=== PATIENT | female | born 1995 | race Caucasian/White ===

== ENCOUNTER → 2019-07-08 09:47 | Outpatient (CLI) | payer MEDICAID, SELFPAY ==
--- NOTE | 2019-07-08 12:40 | NEURO ---
NCS and/or EMG Patient Report Ordering Doctor: Dania Huertas DATE OF SERVICE: 07/08/19 Char Chau is a 23 year old female who presents for electrodiagnostic testing of the upper limbs. She has numbness and tingling in the upper limbs. Electrodiagnostic Testing: Testing performed in the upper limbs. Normal median and ulnar motor studies. Prolonged median sensory latency at the wrist bilaterally. Normal ulnar and radial sensory responses. On needle EMG, all muscles tested show no evidence of denervation with normal motor unit action potentials. Electrodiagnostic assessment: This is an abnormal study in the upper limbs. 1. Electrodiagnostic findings demonstrate bilateral median mononeuropathy. This is consistent with a mild bilateral carpal tunnel syndrome If there are any further questions, please do not hesitate to contact me.
== END ==
PROVIDERS: PCP Nurse Practitioner Family; Referring Provider Physician Assistant; Visit Provider Physician Assistant
DX: R20.2 Paresthesia of skin (principal)
CPT/HCPCS: 95886; 95912

== ENCOUNTER 2024-02-25 10:20 | Emergency (ER) | payer MEDICAID, SELFPAY ==
[2024-02-25 10:20] VITALS: BP 142/100; PULSE 93; RESP 14; TEMP 36.8; O2SAT 99; BMI 78.7
--- NOTE | 2024-02-25 11:12 | CT_ITS ---
STUDY: CT ABDOMEN AND PELVIS WITH CONTRAST REASON FOR EXAM: Female, 28 years old. Post op pain, drainage. HERNIA REPAIR 1 MONTH AGO RADIATION DOSAGE (If Supplied By Facility): CTDIvol = ( 15.41 ) mGy, DLP = ( 1404.82 ) mGycm TECHNIQUE: Transaxial images were obtained from the dome of the diaphragm to the symphysis pubis without oral contrast. IV 100mL Isovue-300 was administered. Sagittal and coronal images were reconstructed. Individualized dose optimization techniques were used for this CT. COMPARISON: None. FINDINGS: The visualized lung bases are unremarkable. The visualized portions of the heart are within normal limits. Normal liver. The patient is status post cholecystectomy. Normal spleen. Normal pancreas. Normal bilateral adrenal glands. Normal right kidney. Normal left kidney. There is a small hiatal hernia. Normal small intestine. There are scattered colonic diverticula consistent with diverticulosis. The appendix is visualized and appears normal. Normal abdominal aorta. Normal inferior vena cava. Normal retroperitoneum. Normal urinary bladder. The patient is status post umbilical hernia repair with postoperative increased markings in the subcutaneous tissues. I suspect a 8.3 cm x 1.3 cm well circumscribed fluid collection deep to the umbilicus abutting the anterior abdominal musculature. There is evidence of overlying skin thickening. Normal osseous structures. CT/Abdomen/Pelvis W IV Cont ONLY IMPRESSION: Postoperative changes are seen at the level of the umbilical hernia repair with a small fluid collection deep to the subcutaneous tissues abutting the anterior abdominal musculature. This may represent a postoperative seroma. Increased markings in the surrounding subcutaneous fat as well as overlying skin thickening. Electronically Signed: Juan Carlos Rg MD at 12:52 EST ,
[2024-02-25 11:23] LABS: Absolute Lymphocyte Count 1.84 X10^3/uL (0.83-4.51); Basophil# 0.04 X10^3/uL; Basophil% 0.4 % (0-1); Eosinophil# 0.88 X10^3/uL; Eosinophils% 8.5 % (0-5); Hematocrit 40.9 % (37-47); Hemoglobin 13.2 g/dL (12.0-15.0); Lymphocyte # 1.84 X10^3/ul (0.83-4.51); Lymphocyte % 17.8 % (19-41); Mean Corp Hgb Conc 32.3 g/dL (32-36); Mean Corpuscular Hgb 27.7 pg (27.0-32.0); Mean Corpuscular Volume 85.9 fL (81-99); Mean Platelet Vol. 10.8 fl (6.2-12.0); Monocyte# 0.51 X10^3/uL; Monocyte% 4.9 % (0-10); NRBC Flagged by Analyzer 0 % (0-5); Neutrophil # 7.02 X10^3/uL (2.7-7.7); Neutrophil % 68.1 % (47-70); Platelet Count 321 K/mm3 (150-450); RBC Distribution Width SD 47.7 fl (35.1-43.9); Red Blood Count 4.76 M/mm3 (4.2-5.4); White Blood Count 10.3 K/mm3 (4.4-11.0)
--- NOTE | 2024-02-25 11:28 | ED.VIS.GI ---
HPI HPI - GI History of Present Illness Chief Complaint: Wound Informant: patient Narrative Narrative: Patient is a 28-year-old female who is 6 weeks status post ventral hernia repair with Dr. Immanuel ellsworth at [facility] presenting with worsening abdominal pain as well as drainage from her surgical site. Patient underwent incarcerated ventral and upper local hernia repair with mesh on 01/20/2024. 1 week postop for postoperative pain. Had a CT at ER which showed subcutaneous fat stranding of the deep to the incision site and punctate lucencies present anterior to the abdominal wall musculature with no evidence of drainable abscess. Patient was placed on Keflex and given Toradol for further pain control. Is unclear at which point patient followed up with her surgeon but she states that he saw her was a concern. She notes she has had some mild redness of her abdomen for weeks now. She notes over the past 3 to 4 days she has had increased pain at her umbilical incision site as well as just to the right of it. She notes she has now had increased drainage that is more puslike. Denies any fever, nausea or vomiting. Denies any pain with her bowel movements. Does not concern for . States that she does not call her surgeon with these symptoms because he messed up my sister surgery. Came in for further evaluation pain control. Has just been taking [id number] medication for her pain. Reports diarrhea. [facility] Medical History Endometriosis Hypertension Home Medications ?Medication ?Instructions ?Recorded ?Last Taken ?Type cetirizine 10 mg tablet 10 mg PO QDAY 08/07/23 Unknown History divalproex 125 mg tablet,delayed 125 mg PO TID 08/07/23 Unknown History release (Depakote) lisinopril 20 mg tablet 20 mg PO QDAY 08/07/23 Unknown History doxycycline hyclate 100 mg tablet 100 mg PO BID #20 tabs 02/25/24 Unknown Rx hydrocodone-acetaminophen 5-325mg 1 tab PO Q6H PRN PRN Pain 3 days 02/25/24 Unknown Rx 5mg-325mg #10 TABLETS Allergy/AdvReac Type Severity Reaction Status Date / Time ondansetron HCl (From Zofran Allergy Hives Verified 02/25/24 10:21 (as hydrochloride)) tramadol Allergy Hives Verified 02/25/24 10:21 trazodone Allergy Hives Verified 02/25/24 10:21 Family History Mother Diabetes Hypertension Myocardial infarction Father Myocardial infarction Heart disease Surgical History History of cholecystectomy Social History Smoking Status: Current every day smoker tobacco type: cigarettes alcohol intake: never ROS ROS ED Constitutional Constitutional ED: Denies chills or fever(s) Gastrointestinal Gastrointestinal: Reports abdominal pain and diarrhea; Denies nausea or vomiting Genitourinary Genitourinary ED: Denies dysuria or hematuria Musculoskeletal Musculoskeletal: Denies arthralgias or myalgias Integumentary Reports other Details: Draining surgical wound mid abdomen Hematologic/Lymphatic Hematologic/Lymphatic: Denies easy bleeding or easy bruising EXAM Physical Exam Const Vital Signs: 02/25/24 10:20 02/25/24 10:20 02/25/24 11:34 Temperature 98.3 F 98.3 F 98.4 F Temperature Source Temporal Temporal Oral Pulse Rate 93 93 81 Respiratory Rate 14 14 16 Blood Pressure 142/100 H 142/100 H 120/87 H Blood Pressure Mean 114 114 98 Pulse Ox 99 99 97 Oxygen Delivery Method Room Air Room Air Room Air 02/25/24 12:39 02/25/24 14:00 Temperature 98.2 F Temperature Source Oral Pulse Rate 80 Respiratory Rate 18 Blood Pressure 130/75 H Blood Pressure Mean 93 Pulse Ox 97 Oxygen Delivery Method Room Air Room Air Positive well nourished and well developed General Appearance ED: well developed and NAD HEENT Reports moist mucous membranes Neck supple Resp normal respiratory effort and clear to auscultation bilaterally GI GI Narrative: Mildly protuberant versus distended abdomen. Bowel sounds present. Midline laparotomy surgical incision present. There is approximately 3 cm at the region of the umbilicus that the wound is mildly dehisced and appears to be healing by secondary intent. There is drainage from this area present that is serous and difficult to tell if this is granulation tissue versus purulence developing. Mild tenderness of the abdomen but no guarding appreciated. No hernias or masses appreciated. Auscultation: hypoactive bowel sounds Extremity full ROM Neuro Sensorium / Orientation: alert Motor Exam: Negative for general weakness Psych mental status grossly normal and thought process normal Skin Skin Narrative: See abdominal exam MDM MDM MDM Narrative Medical decision making narrative: Patient is evaluated for worsening postoperative abdominal pain as well as increased abdominal drainage. She states it has been purulent. Denies any fever. Patient had a relatively large hernia repair/open with mesh about 5 weeks ago performed at Dr. Quintero. Patient is given morphine for pain control. Lab work including CBC, lactate, CMP and urinalysis is obtained. CT abdomen pelvis is also ordered. Workup is largely negative including a normal white blood cell count normal lactic acid. CT of the abdomen pelvis shows postoperative changes with a small fluid collection deep to the subcu tissue which may represent a postoperative seroma. There are increased markings of surrounding subcutaneous fat as well as overlying skin thickening. I discussed the case issue with our surgeon on-call, Dr. Prajapati. She felt that given the normal lab work that likely this was a seroma and felt that the patient should follow-up with her surgeon so she has she had mesh repair. Discussed with this patient reevaluated her. She continues to have pain. I did attempt to express some fluid with direct pressure on her abdomen and there was some purulent discharge. Culture was sent. Case is discussed with her surgeon, Dr. Quintero over the phone. He recommends a 10-day course of doxycycline. Is minimal for a short course of norco for further pain control and also recommend Hibiclens showers once to twice a week. He will follow-up with the patient in office. Patient is amenable with this plan. Overall she is well-appearing and is given return precautions. I did contact the lab to ensure that the culture results will be sent to Dr. Quintero. Patient converses antibiotics in the ER. History & Record Review Additional record(s) reviewed:: Prior outpatient record (Op note, ER note from [facility] on [facility] ) Lab Data Attestation: I reviewed the patient's lab results. Labs: Laboratory Results - last 24 hr 02/25/24 02/25/24 02/25/24 10:55 11:27 12:46 WBC 10.3 RBC 4.76 Hgb 13.2 Hct 40.9 MCV 85.9 MCH 27.7 MCHC 32.3 RDW Std Deviation 47.7 H RDW Coeff of Sendy 15.0 H Plt Count 321 MPV 10.8 Immature Gran % (Auto) 0.300 Neut % (Auto) 68.1 Lymph % (Auto) 17.8 L White % (Auto) 4.9 Eos % (Auto) 8.5 H Baso % (Auto) 0.4 Absolute Neuts (auto) 7.0 Absolute Lymphs (auto) 1.84 Nucleated RBC % 0 Sodium 137 Potassium 3.6 Chloride 107 Carbon Dioxide 24.0 Anion Gap 6 BUN 12 Creatinine 0.62 Estim Creat Clear Calc 243.01 Est GFR (MDRD) Af Amer 145 Est GFR (MDRD) Non-Af 119 BUN/Creatinine Ratio 19.3 Glucose 110 H Lactic Acid 1.2 Calcium 9.0 Total Bilirubin 0.30 AST 4 L ALT 15 Alkaline Phosphatase 104 Total Protein 7.2 Albumin 3.3 Globulin 3.9 Albumin/Globulin Ratio 0.8 L Serum , Qual NEGATIVE Urine Color Yellow Urine Clarity Clear Urine pH 6.5 Ur Specific Hugo 1.010 Urine Protein 15 H Urine Glucose (UA) Normal Urine Ketones Negative Urine Occult Blood Negative Urine Nitrite Negative Urine Bilirubin Negative Urine Urobilinogen Normal Ur Leukocyte Esterase 100 H Urine RBC 0 SEEN Urine WBC 0-5 SEEN Ur Squamous Epith Cells 5-10 SEEN Urine Bacteria 1+ Urine Mucus 0 SEEN Radiography Diagnostic Testing: Clinical Impression(s) from Imaging Studies Abdomen/Pelvis CT 02/25/24 11:12 IMPRESSION: Postoperative changes are seen at the level of the umbilical hernia repair with a small fluid collection deep to the subcutaneous tissues abutting the anterior abdominal musculature. This may represent a postoperative seroma. Increased markings in the surrounding subcutaneous fat as well as overlying skin thickening. Electronically Signed: Juan Carlos Rg MD at 12:52 EST , Management Discussion w/another healthcare provider: [facility] Discharge Plan Triage Chief Complaint: Wound ED Provider: Debra Zuh Dx/Rx/DC Orders Clinical Impression: Postoperative seroma, Acute postoperative pain of abdomen Instructions: ED Post Op Wound Check, Pain, ED Seroma, Postsurgical Prescriptions: New doxycycline hyclate 100 mg tablet 100 mg PO BID Qty: 20 0RF hydrocodone-acetaminophen 5-325 mg tablet 1 tab PO Q6H PRN PRN (Reason: Pain) 3 Days Qty: 10 0RF No Action lisinopril 20 mg tablet 20 mg PO QDAY cetirizine 10 mg tablet 10 mg PO QDAY divalproex [Depakote] 125 mg tablet,delayed release (DR/EC) 125 mg PO TID Primary Care Provider: Missy Mcgraw Referrals: Immanuel Quintero MD [Non-Staff] - 2 Days for wound check Radha Schneider NP, [facility] [Non-Staff] - Activity Restrictions/Additional Instructions: Your CT shows a fluid collection of your abdomen below the skin but above the abdominal wall. This consistent with a seroma. Is possible given the drainage that is starting to get infected. Your lab work however was very reassuring and not consistent with infection. Out of abundance of caution we will put you on antibiotics. Please follow-up closely with your surgeon for this. In addition I do recommend performing Hibiclens washes (bathe with Hibiclens antiseptic solution which is available [id number] at any drugstore) twice a week. Print Language: Argentine Disposition Disposition: Home, Self Care
[2024-02-25] MEDS: Metoclopramide 10 MG/2 ML Vial 2.5 MG IV (11:33)
[2024-02-25 11:34] VITALS: BP 120/87; PULSE 81; RESP 16; TEMP 36.9; O2SAT 97
[2024-02-25] MEDS: morphine 8 MG/ML Syringe 6 MG IV (11:34)
[2024-02-25 11:40] LABS: ALB/GLOB Ratio 0.8 RATIO (0.9-2.4); AST(SGOT) 4 U/L (15-37); Alanine Aminotransfer ALT/SGPT 15 U/L (13-56); Albumin, Serum 3.3 g/dL (3.2-5.0); Alkaline Phosphatase 104 U/L (45-117); Anion Gap 6 (5-15); BUN 12 mg/dL (7-18); BUN/Creat Ratio 19.3 RATIO (10-20); Chloride 107 mmol/L (98-107); Creatinine, Serum 0.62 mg/dL (0.55-1.02); EST Glomerular Filtration Rate 119 mL/min (>60); Est Glom Filt Rate - Afr Amer 145 mL/min (>60); Estimated Creatinine Clearance 243.01 ml/min; Globulin 3.9 g/dL (2.2-4.2); Glucose 110 mg/dL (74-106); Potassium 3.6 mmol/L (3.5-5.1); Protein, Total 7.2 g/dL (6.4-8.2); Sodium Level 137 mmol/L (136-145)
[2024-02-25 11:46] LABS: Internal QC Validated? YES +Cl - CLEAR BKGD; Pregnancy, Serum, hCG Quali. NEGATIVE Negative
[2024-02-25 12:00] LABS: Lactic Acid 1.2 mmol/L (0.4-1.9)
[2024-02-25 12:39] VITALS: BP 130/75; TEMP 36.8
--- NOTE | 2024-02-25 12:42 | ED.RN ---
Patient prompted for urine specimen and ambulated to restroom.
[2024-02-25 12:53] LABS: Mucous, Urine 0 SEEN /hpf (<or=2+); Red Blood Cells-Urine 0 SEEN /hpf (0-5)
[2024-02-25 12:55] LABS: Color, Urine Yellow (Yellow); Glucose, Dipstick Normal (Normal); Ketone-Dipstick Negative (Negative); Leukocyte Esterase-Dipstick 100 /ul (Negative); Nitrite-Dipstick Negative (Negative); Occult Blood-Urine Negative /ul (Negative); Protein-Dipstick 15 mg/dl (Negative); Urine Bilirubin Dipstick Negative (Negative); Urine Clarity Clear (Clear); Urine Urobilinogen Normal (Normal); Urine pH 6.5 (5.0 - 8.0)
[2024-02-25 13:02] LABS: Squamous Epithelial Cells - UA 5-10 SEEN /hpf (5-10)
[2024-02-25 13:03] LABS: Bacteria 1+ /hpf (None Seen); White Blood Cells 0-5 SEEN /hpf (0-5)
[2024-02-25] MEDS: oxyCODONE 5 MG Tablet PO (13:50)
[2024-02-25 14:00] VITALS: PULSE 80; RESP 18; O2SAT 97
[2024-02-25] MEDS: Doxycycline 100 MG CAPSULE PO (15:09)
[2024-02-25 15:18] VITALS: BP 130/75; PULSE 80; RESP 18; TEMP 36.8; O2SAT 97
== END 2024-02-25 15:19 | disposition home or self-care (01) ==
PROVIDERS: Emergency Provider Emergency Medicine; PCP Nurse Practitioner Family; Visit Provider Emergency Medicine
DX: G89.18 Other acute postprocedural pain (principal); R10.9 Unspecified abdominal pain; L76.32 Postprocedural hematoma of skin and subcutaneous tissue following other procedure; I10 Essential (primary) hypertension; Z79.899 Other long term (current) drug therapy; Z90.49 Acquired absence of other specified parts of digestive tract; F17.210 Nicotine dependence, cigarettes, uncomplicated
CPT/HCPCS: 74177; 80053; 81001; 83605; 84703; 85025; 87070; 87077; 87186; 87205; 96374; 96375; 99284; Q9967; A4216

== ENCOUNTER 2024-05-07 09:12 | Outpatient (RCR) | payer MEDICAID, SELFPAY ==
[2024-05-07 09:40] VITALS: BP 126/89; PULSE 85; RESP 16; TEMP 36.3; BMI 55.3
--- NOTE | 2024-05-07 10:18 | PCM.WC.HP ---
History of Present Illness Date of Service: 05/07/24 Chief Complaint: Non healing surgical wound History of Wound: Ms. Mendoza is a 28 year old who presents due to non healing abdominal wound. S/p Hernia surgery about 3 months ago and since then, there has been non closure. She was advised to follow-up at [facility] By her primary surgeon at [place] as she developed a postop abscess. Per patient, she states that this was drained and she was treated for a Pseudomonas infection. Has been on 4 courses of ciprofloxacin. Has been packing the area. She reports pain. No known history of diabetes mellitus. History of tobacco abuse. No chills, fever or feeling of unwell reported at this time. [facility] Medical History (Updated 05/07/24 @ 10:[address] Cullen Rider MD) Tobacco abuse Obesity Postoperative abscess Nonhealing surgical wound Endometriosis Hypertension Home Medications ?Medication ?Instructions ?Recorded ?Last Taken ?Type cetirizine 10 mg tablet 10 mg PO QDAY 08/07/23 Unknown History divalproex 125 mg tablet,delayed 125 mg PO TID 08/07/23 Unknown History release (Depakote) lisinopril 20 mg tablet 20 mg PO QDAY 08/07/23 Unknown History doxycycline hyclate 100 mg tablet 100 mg PO BID #20 tabs 02/25/24 Unknown Rx hydrocodone-acetaminophen 5-325mg 1 tab PO Q6H PRN PRN Pain 3 days 02/25/24 Unknown Rx 5mg-325mg #10 TABLETS bupropion HCl 150 mg tablet,12 hr mg PO 05/07/24 Unknown History sustained-release Allergy/AdvReac Type Severity Reaction Status Date / Time ketorolac (From Toradol) Allergy Intermediate Hives Verified 05/07/24 09:38 ondansetron HCl (From Zofran Allergy Hives Verified 05/07/24 09:38 (as hydrochloride)) tramadol Allergy Hives Verified 05/07/24 09:38 trazodone Allergy Hives Verified 05/07/24 09:38 Family History Mother Diabetes Hypertension Myocardial infarction Father Myocardial infarction Heart disease Surgical History History of cholecystectomy Social History Smoking Status: Former smoker alcohol intake: never ROS Constitutional Constitutional: Denies daytime sleepiness, excessive sweating, fatigue, fever(s), frequent falls, headache(s), increased appetite or lethargy Eyes Eyes: Denies bloody eye, blurry vision, change in eye color, change in vision, discharge from eye(s) or discongugate gaze ENT HEENT: Denies disequillibrium, dizziness, dysphagia, ear discharge, epistaxis, foreign body in nose, halitosis or headache(s) Cardiovascular Cardiovascular: Denies bluish discoloration of hand/feet, chest pain, claudication, cold extremities, cyanosis or diaphoresis Respiratory/Chest Respiratory/Chest: Denies change in phlegm color, chest congestion, chest tightness, dusky skin, dyspnea on exertion, excessive phlegm production or inability to speak Gastrointestinal Gastrointestinal: Denies anorexia, belching, change in bowel habits, change in stool character, chewing difficulty, coffee ground emesis, dysphagia or early satiety Genitourinary Genitourinary: Denies anuria, change in libido, change in urinary stream, difficulty urinating, dribbling or flank pain Musculoskeletal Musculoskeletal: Denies atrophy, back pain, difficulty walking, extremity pain, joint swelling, loss of height, radiating pain into limb or tremors Integumentary Integumentary: Denies changing lesions, erythema, furuncle, hirsutism, jaundice or skin swelling Neurologic Neurologic: Denies abnormal hearing, abnormal speech, behavior changes, confusion, convulsions, frequent falls, memory loss or numbness Psychiatric Psychiatric: Denies auditory hallucinations, behavioral changes, change in appetite, confusion, hallucinations, hopelessness or memory loss Endocrine Endocrinology: Denies cold intolerance, deepening of the voice, excessive sweating, fatigue, flushing, increase in ring/shoe/hat size or palpitations Hematologic/Lymphatic Hematologic/Lymphatic: Denies anemia, easy bleeding or easy bruising Allergic/Immunologic Allergic/Immunologic: Denies lip swelling, throat swelling, tongue swelling, eczemia or wheezing Vital Signs Vital Signs Vital Signs: 05/07/24 09:40 Temperature 97.4 F L Temperature Source Temporal Pulse Rate 85 Respiratory Rate 16 Blood Pressure 126/89 H Blood Pressure Mean 101 Blood Pressure Source Monitor Blood Pressure Position Sitting Blood Pressure Location Left Arm Oxygen Delivery Method Room Air Weight Weight: 322 lb Body Mass Index (BMI) 55.3 Physical Exam Const alert, oriented x3 and no apparent distress General Appearance: cooperative and comfortable HEENT normocephalic, head/scalp atraumatic and hearing grossly normal bilaterally Eyes EOMs intact bilaterally General Eye: normal appearance of both eyes Neck full ROM General: normal visual inspection Resp normal respiratory effort and normal air movement Effort and Inspection: able to speak in complete sentences Cardio regular rate, regular rhythm, S1 normal heart sound and S2 normal heart sound GI soft to palpation Palpation: tender Skin Wounds: wounds noted size Size: See clinical note, bed other Not well-visualized due to location. Deep in the umbilical area with extension into the abdominal cavity. , drainage purulent, no odor and surrounding erythema Neuro oriented x3, CN's II-XII intact bilaterally, moves all extremities and no focal motor deficits Psych mental status grossly normal, thought process normal and cooperative Debridement Note Debridement Note Wound debrided: Abdomen (umbilicus) Type of Debridement: Excisional debridement Anesthesia Used: 4% Lidocaine Solution Depth: Down to and including healthy tissue and in the subcutaneous layer Percentage of wound debrided: 100 Instrument Used: 3mm curette Tissue Removed: Purulent and devitalized tissue Severity: Fat Layer Exposed Amount of bleeding with debridement: Mild Bleeding Controlled with: Pressure Patient tolerated procedure: Patient tolerated procedure well Post-Debridement Measurements and Additional Note: Post-Debridement Measurements/Treatment - Nurse 1 - General Ulcer Assessment Start: 05/07/24 09:36 Freq: Status: Active Protocol: RALPH Activity Type Activity Date Activity User E-sign Co-sign Detail Recorded Client Recorded Date Recorded By Document 05/07/24 09:40 [id number] 05/07/24 09:48 KW 05/07/24 09:40 - Today's Visit Information Type of service Initial Visit Arrival Mode Ambulatory Accompanied by mom Patient Identification Verified (Name & Yes ) Height and Weight Height 5 ft 4 in Weight 322 lb Weight in Pounds 322.0 lbs Weight Measurement Method Estimated by Patient Body Mass Index (BMI) 55.3 BMI Classification Obese BSA - [place]il[place] 2.39 Vital Signs Temperature (97.8 F-99.1 F) 97.4 F L Temperature Source Temporal Pulse Rate (60-100) 85 Pulse Location Monitor Respiratory Rate (12-18) 16 Respiratory rate source Ventilator Oxygen Delivery Method Room Air Blood Pressure (90/60-120/80) 126/89 H Blood Pressure Mean 101 Source Monitor Position Sitting Blood Pressure Location Left Arm History Since Last Visit- (Skip if this is Patient's initial visit) Left Footwear Regular Shoe Right Footwear Regular Shoe Pain Scale: 0-10 Numeric Is Patient Pain Free? No ABD -Description Sharp,Throbbing ,Burning,Aching ,Cramping -Intensity 8 -Alleviating Factors/Interventions Medication, Medicate when due Communication Assessment Preferred language Luxembourgish Welt Rougher Required No Able to Read Yes Able to Write Yes Communication Tools None Right Hearing Abillity Normal Left Hearing Abillity Normal Visual Assistive Devices None Teaching Assessment Preferences Verbal,Written, Demonstration Barriers to Learning None Readiness To Learn Excellent Willingness to Engage in Self Management High Activies Readiness to Engage in Self Management High Activities Anxiety Level Calm Cooperation Cooperative Perception Coherent Interest in Health Problem Asks Questions Education Importance Acknowledges Need Does Patient Smoke tobacco or other Yes substances Smoking Status Former smoker Is Patient Diabetic No Functional Assessment Recent Decline in Ability to Perform Denies Any Declines Culture/Orthodoxy/Customer Experience Consultant Cultural/Orthodoxy Needs that may affect No Treatment Plan Would you allow our hospital booster plant operator to No meet you for the purpose of spiritual/ emotional support? Customer Experience Consultant to contact place of [facility] No WC - Nurse 1 - General Ulcer Measurement Start: 05/07/24 09:36 Freq: Status: Active Protocol: Activity Type Activity Date Activity User E-sign Co-sign Detail Recorded Client Recorded Date Recorded By Document 05/07/24 09:40 [id number] 05/07/24 09:48 05/07/24 09:40 Wound Center Nurse 1 #1 UMBILICUS -Current Size (cm) - Length 0.8 -Current Size (cm) - Width 0.4 -Current Size (cm) - Depth 3 -Total Square Cm 0.32 -Date of Last Picture (Recall this 05/07/24 field) -Exudate Amt Large -Exudate Type Serosanguineous -Wound Margin Indistinct, Non -Visible -Granulation Amt Small (1-33%) -Granulation Quality Locust -Necrosis Amt Large (67-100%) -Necrotic Tissue Type Adherent Slough -Texture (Ana-wound Skin Appearance) Assessed,Rash -Moisture (Ana-wound Skin Appearance) Assessed, Maceration -Color (Ana-wound Skin Appearance) Assessed, Erythema -Temperature (Ana-wound Skin No Abnormality Appearance) (Pt Warm) -Tenderness on Palpation (Ana-wound No Skin Appearance) -Ulcer Cleansing Soap and Water -Foul Odor after Cleansing No -Anesthetic Used 4% Lidocaine Solution WC - Nurse 2 - General Ulcer CM Notes Start: 05/07/24 09:36 Freq: Status: Active Protocol: Activity Type Activity Date Activity User E-sign Co-sign Detail Recorded Client Recorded Date Recorded By Document 05/07/24 10:02 [id number] 05/07/24 10:11 05/07/24 10:02 Wound Center Nurse 2 -Time 10:02 -Correct Patient Yes -Correct Side, Site, Position Yes -Correct Procedure Yes -Procedure Performed Yes -Type of Procedure Debridement -Clinical Debridement Subcutaneous -Tissue Removed Subcutaneous -Post Debridement (cm) - Length 1.3 -Post Debridement (cm) - Width 0.5 -Post Debridement (cm) - Depth 3.5 -Total Square (Post) (cm) 0.65 -Area of Debridement (cm) - Length 1.3 -Area of Debridement (cm) - Width 0.5 -Total Square (Area) (cm) 0.65 -Tunneling No -Undermining/Tunneling No -Circular Undermining No -Wound/Ulcer Outcome Not Healed -Ulcer Cleansing Rinsed/ Irrigated with Saline -Foul Odor after Cleansing No -Bioengineered Tissue No -Bleeding Controlled with Pressure -Treatment Response Procedure Tolerated Well -Debridement - Subq, 1st 20sq cm Yes Pain Scale: 0-10 Numeric Is Patient Pain Free? Yes Charges/Coding Visit Charges Office Visits / Consults: [id number] OV L4 New 45min Procedures Integumentary 111xxx-113xx: [id number] Catrachita subq tissue 20 sq cm/< Assessment/Plan Assessment/Plan (1) Nonhealing surgical wound: CODE(S): T81.89XA - Other complications of procedures, not elsewhere classified, initial encounter (2) Postoperative abscess: CODE(S): T81.49XA - Infection following a procedure, other surgical site, initial encounter (3) Obesity: CODE(S): E66.9 - Obesity, unspecified (4) Tobacco abuse: CODE(S): Z72.0 - Tobacco use PLAN: Plan Debridement done as documented above, procedure was well-tolerated. On initial debridement, purulent substance/drainage noted, subsequently, just bloody drainage. Probes deep, at about 3.5 cm into the intra-abdominal cavity. As above, she reports a history of postop abscess which was drained/managed at [facility], we have requested records. Cultures taken, will review. CBC, CMP, A1c, prealbumin, CRP and ESR also ordered, will review. For now, 1 inch iodoform packing daily to twice daily depending on drainage. Smoking cessation very strongly recommended, she voiced understanding. Optimal protein intake discussed. She was advised to call with any questions or concerns. Consider need for exploratory laparotomy if there is still no consistent healing/persistent drainage. Possibilities include non closure due to foreign body. Follow-up in 2 weeks due to being away in [place]. This note was generated with [employer] dictation software. It may contain incorrect words, spelling, and punctuation that were not noted in checking the note before signing.
--- NOTE | 2024-05-08 14:03 | WC ---
PHOTO 05/07/24 UMBILICUS
== END 2024-05-15 23:59 | disposition home or self-care (01) ==
LOC: WC 09:12
PROVIDERS: PCP Nurse Practitioner Family; Referring Provider Nurse Practitioner Family; Visit Provider Internal Medicine
DX: T81.89XA Other complications of procedures, not elsewhere classified, initial encounter (principal); Z68.43 Body mass index [BMI] 50.0-59.9, adult; E66.9 Obesity, unspecified; I10 Essential (primary) hypertension; Z87.891 Personal history of nicotine dependence; T81.49XA Infection following a procedure, other surgical site, initial encounter; Z90.49 Acquired absence of other specified parts of digestive tract
CPT/HCPCS: G0463; 11042; 99213; 99214

== ENCOUNTER 2024-06-11 11:15 | Outpatient (RCR) | payer MEDICAID, SELFPAY ==
[2024-05-16 02:39] VITALS: BP 126/89; PULSE 85; RESP 16; TEMP 36.3; BMI 55.3
[2024-05-28 11:24] VITALS: BP 135/85; PULSE 68; RESP 14; TEMP 36.2; BMI 55.3
--- NOTE | 2024-05-28 13:23 | PCM.WC.PN ---
History of Present Illness Date of Service: 05/28/24 Chief Complaint: Non healing surgical wound History of Wound: Ms. Mendoza is a 28 year old who presents due to non healing abdominal wound. S/p Hernia surgery about 3 months ago and since then, there has been non closure. She was advised to follow-up at [facility] By her primary surgeon at [place] as she developed a postop abscess. Per patient, she states that this was drained and she was treated for a Pseudomonas infection. Has been on 4 courses of ciprofloxacin. Has been packing the area. She reports pain. No known history of diabetes mellitus. History of tobacco abuse. No chills, fever or feeling of unwell reported at this time. Progress of Wound: Has not been seen here in about 3 weeks. Was away in [place] and only recently picked up antibiotics.. No significant/new concerns reported. Tolerating antibiotics well. Objective Data Objective Data Vital Signs: Vital Signs Temp Pulse Resp BP 97.1 F L 68 14 135/85 H 05/28/24 11:24 05/28/24 11:24 05/28/24 11:24 05/28/24 11:24 Weight: 322 lb Body Mass Index (BMI) 55.3 Charges/Coding Procedures Integumentary 111xxx-113xx: [id number] Catr[place]ita subq tissue 20 sq cm/< Physical Exam Const alert, oriented x3 and no apparent distress General Appearance: cooperative and comfortable HEENT normocephalic, head/scalp atraumatic and hearing grossly normal bilaterally Eyes EOMs intact bilaterally General Eye: normal appearance of both eyes Neck full ROM General: normal visual inspection Resp normal respiratory effort Effort and Inspection: able to speak in complete sentences Skin Wounds: wounds noted size Size: See clinical note, bed other Not directly visualized blood probes into abdominal cavity. , drainage, no odor and open Neuro oriented x3, CN's II-XII intact bilaterally, moves all extremities and no focal motor deficits Psych mental status grossly normal, thought process normal and cooperative Debridement Note Debridement Note Wound debrided: Abdomen (umbilicus) Type of Debridement: Excisional debridement Anesthesia Used: 4% Lidocaine Solution Depth: Down to and including healthy tissue and in the subcutaneous layer Percentage of wound debrided: 100 Instrument Used: 3mm curette Tissue Removed: Devitalized tissue Severity: Fat Layer Exposed Amount of bleeding with debridement: Mild Bleeding Controlled with: Pressure Patient tolerated procedure: Patient tolerated procedure well Post-Debridement Measurements and Additional Note: Post-Debridement Measurements/Treatment WC - Nurse 1 - General Ulcer Assessment Start: 05/28/24 11:24 Freq: Status: Active Protocol: RALPH Activity Type Activity Date Activity User E-sign Co-sign Detail Recorded Client Recorded Date Recorded By Document 05/28/24 11:24 ML [id number] 05/28/24 11:27 ML 05/28/24 11:24 WC - Today's Visit Information Type of service Follow-up Visit (Physician/PICKLE PROCESSOR ) Arrival Mode Ambulatory Transfer Assistance None Patient Identification Verified (Name & Yes ) Patient Requires Transmission-Based No Precautions Height and Weight Body Mass Index (BMI) 55.3 BMI Classification Obese Vital Signs Temperature (97.8 F-99.1 F) 97.1 F L Temperature Source Temporal Pulse Rate (60-100) 68 Pulse Location Monitor Respiratory Rate (12-18) 14 Respiratory rate source Observation Blood Pressure (90/60-120/80) 135/85 H Blood Pressure Mean (mm Hg) 101 Source Monitor Position Sitting Blood Pressure Location Right Arm History Since Last Visit- (Skip if this is Patient's initial visit) Have you changed medications since your No last visit? Any new allergies or adverse reactions No Had a fall/change in ADL's that may No increase risk of falls Signs or symptoms of abuse and/or No neglect since last visit Has dressing in place as prescribed No Has compression in place as prescribed N/A Has offloadiing in place as prescribed N/A Experienced any changes in pain level or No management Pain Scale: 0-10 Numeric Is Patient Pain Free? No - Nurse 1 - General Ulcer Measurement Start: 05/28/24 11:24 Freq: Status: Active Protocol: Activity Type Activity Date Activity User E-sign Co-sign Detail Recorded Client Recorded Date Recorded By Document 05/28/24 11:24 ML [id number] 05/28/24 11:27 ML 05/28/24 11:24 Wound Center Nurse 1 #1 UMBILICUS -Current Size (cm) - Length 0.1 -Current Size (cm) - Width 0.1 -Current Size (cm) - Depth 1 -Total Square Cm 0.01 -Epithelialization Medium 34-66% -Exudate Amt Medium -Exudate Type Serosanguineous -Granulation Amt Medium (34-66%) -Slough/Fibrin Yes -Necrosis Amt Medium (34-66%) -Necrotic Tissue Type Adherent Slough -Texture (Ana-wound Skin Appearance) Assessed -Moisture (Ana-wound Skin Appearance) Assessed -Color (Ana-wound Skin Appearance) Assessed -Temperature (Ana-wound Skin No Abnormality Appearance) (Pt Warm) -Tenderness on Palpation (Ana-wound No Skin Appearance) -Ulcer Cleansing Rinsed/ Irrigated with Saline -Foul Odor after Cleansing No -Anesthetic Used 5% Lidocaine Gel WC - Nurse 2 - General Ulcer CM Notes Start: 05/28/24 11:24 Freq: Status: Active Protocol: Activity Type Activity Date Activity User E-sign Co-sign Detail Recorded Client Recorded Date Recorded By Document 05/28/24 11:50 [id number] 05/28/24 11:54 GM 05/28/24 11:50 Wound Center Nurse 2 -Time 11:50 -Correct Patient Yes -Correct Side, Site, Position Yes -Correct Procedure Yes -Procedure Performed Yes -Type of Procedure Debridement -Clinical Debridement Subcutaneous -Tissue Removed Subcutaneous -Post Debridement (cm) - Length 1.0 -Post Debridement (cm) - Width 0.3 -Post Debridement (cm) - Depth 2.3 -Total Square (Post) (cm) 0.30 -Area of Debridement (cm) - Length 1.0 -Area of Debridement (cm) - Width 0.3 -Total Square (Area) (cm) 0.30 -Tunneling No -Undermining/Tunneling No -Circular Undermining No -Wound/Ulcer Outcome Not Healed -Ulcer Cleansing Rinsed/ Irrigated with Saline -Foul Odor after Cleansing No -Bioengineered Tissue No -Bleeding Controlled with Pressure -Treatment Response Procedure Tolerated Well -Debridement - Subq, 1st 20sq cm Yes Pain Scale: 0-10 Numeric Is Patient Pain Free? Yes Assessment/Plan Assessment/Plan (1) Nonhealing surgical wound: CODE(S): T81.89XA - Other complications of procedures, not elsewhere classified, initial encounter (2) Postoperative abscess: CODE(S): T81.49XA - Infection following a procedure, other surgical site, initial encounter (3) Obesity: CODE(S): E66.9 - Obesity, unspecified (4) Tobacco abuse: CODE(S): Z72.0 - Tobacco use PLAN: Plan Debridement done as documented above, procedure was well-tolerated. Circumference difficult to establish due to location (umbilicus) however, depth with significant improvement since her last visit. No purulence noted on debridement. Complete antibiotics. Continue 1 inch iodoform packing daily to twice daily depending on drainage. Smoking cessation very strongly recommended, she voiced understanding. Optimal protein intake discussed. She was advised to call with any questions or concerns. Will hold off surgical consult/evaluation at this time as there has been some improvement. Follow-up in 2 weeks or sooner if needed. This note was generated with [employer] dictation software. It may contain incorrect words, spelling, and punctuation that were not noted in checking the note before signing.
[2024-06-11 11:53] VITALS: BP 140/94; PULSE 115; RESP 15; TEMP 36.5; BMI 55.3
--- NOTE | 2024-06-11 13:21 | PN.PCM_ITS ---
History of Present Illness Date of Service: 06/11/24 Chief Complaint: Non healing surgical wound History of Wound: Ms. Mendoza is a 28 year old who presents due to non healing abdominal wound. S/p Hernia surgery about 3 months ago and since then, there has been non closure. She was advised to follow-up at [facility] By her primary surgeon at [place] as she developed a postop abscess. Per patient, she states that this was drained and she was treated for a Pseudomonas infection. Has been on 4 courses of ciprofloxacin. Has been packing the area. She reports pain. No known history of diabetes mellitus. History of tobacco abuse. No chills, fever or feeling of unwell reported at this time. Progress of Wound: She reports a 3-day history of increased drainage, abdominal pain and feeling of unwell. She also reports fever. Objective Data Objective Data Vital Signs: Vital Signs Temp Pulse Resp BP 97.7 F L 115 H 15 140/94 H 06/11/24 11:53 06/11/24 11:53 06/11/24 11:53 06/11/24 11:53 Weight: 322 lb Body Mass Index (BMI) 55.3 Charges/Coding Visit Charges Office Visits / Consults: 66026 OV L3 Est 20min Physical Exam Const alert, oriented x3 and no apparent distress General Appearance: cooperative and comfortable HEENT normocephalic, head/scalp atraumatic and hearing grossly normal bilaterally Eyes EOMs intact bilaterally General Eye: normal appearance of both eyes Neck full ROM General: normal visual inspection Resp normal respiratory effort Effort and Inspection: able to speak in complete sentences GI GI Narrative: Periumbilical area of erythema appreciated. Warm to touch. Tender on mild palpation. Skin Wounds: wounds noted size, bed other Not directly visualized blood probes into abdominal cavity. , drainage, no odor, open and surrounding erythema Wound Narrative: As above, periumbilical erythema. Crusting also appreciated. Differential warmth and tenderness on palpation. Neuro oriented x3, CN's II-XII intact bilaterally, moves all extremities and no focal motor deficits Psych mental status grossly normal, thought process normal and cooperative Debridement Note Debridement Note No debridement was completed: No debridement was completed today Post-Debridement Measurements and Additional Note: Post-Debridement Measurements/Treatment ELADIO - Nurse 1 - General Ulcer Assessment Start: 05/28/24 11:24 Freq: Status: Active Protocol: RALPH Activity Type Activity Date Activity User E-sign Co-sign Detail Recorded Client Recorded Date Recorded By Document 05/28/24 11:24 ML [id number] 05/28/24 11:27 ML Document 06/11/24 11:53 ML [id number] 06/11/24 11:57 ML 05/28/24 06/11/24 11:24 11:53 WC - Today's Visit Information Type of service Follow-up Visit Follow-up Visit (Physician/AIR ANALYSIS ENGINEERING TECHNICIAN (Physician/AIR ANALYSIS ENGINEERING TECHNICIAN ) ) Arrival Mode Ambulatory Transfer Assistance None None Patient Identification Verified (Name & Yes Yes ) Patient Requires Transmission-Based No No Precautions Height and Weight Body Mass Index (BMI) 55.3 55.3 BMI Classification Obese Obese Vital Signs Temperature (97.8 F-99.1 F) 97.1 F L 97.7 F L Temperature Source Temporal Temporal Pulse Rate (60-100) 68 115 H Pulse Location Monitor Monitor Respiratory Rate (12-18) 14 15 Respiratory rate source Observation Observation Blood Pressure (90/60-120/80) 135/85 H 140/94 H Blood Pressure Mean (mm Hg) 101 109 Source Monitor Monitor Position Sitting Sitting Blood Pressure Location Right Arm Left Arm History Since Last Visit- (Skip if this is Patient's initial visit) Have you changed medications since your No No last visit? Any new allergies or adverse reactions No No Had a fall/change in ADL's that may No No increase risk of falls Signs or symptoms of abuse and/or No No neglect since last visit Has dressing in place as prescribed No Yes Has compression in place as prescribed N/A N/A Has offloadiing in place as prescribed N/A N/A Experienced any changes in pain level or No No management Pain Scale: 0-10 Numeric Is Patient Pain Free? No Yes - Nurse 1 - General Ulcer Measurement Start: 05/28/24 11:24 Freq: Status: Active Protocol: Activity Type Activity Date Activity User E-sign Co-sign Detail Recorded Client Recorded Date Recorded By Document 05/28/24 11:24 ML [id number] 05/28/24 11:27 ML Document 06/11/24 11:53 ML [id number] 06/11/24 11:57 ML 05/28/24 06/11/24 11:24 11:53 Wound Center Nurse 1 #1 UMBILICUS -Current Size (cm) - Length 0.1 0.1 -Current Size (cm) - Width 0.1 0.1 -Current Size (cm) - Depth 1 3 -Total Square Cm 0.01 0.01 -Epithelialization Medium 34-66% -Exudate Amt Medium Medium -Exudate Type Serosanguineous Serosanguineous -Wound Margin Distinct, Outline Attached -Granulation Amt Medium (34-66%) Small (1-33%) -Slough/Fibrin Yes -Necrosis Amt Medium (34-66%) Medium (34-66%) -Necrotic Tissue Type Adherent Slough Adherent Slough -Texture (Ana-wound Skin Appearance) Assessed Assessed -Moisture (Ana-wound Skin Appearance) Assessed Assessed -Color (Ana-wound Skin Appearance) Assessed Assessed -Temperature (Ana-wound Skin No Abnormality No Abnormality Appearance) (Pt Warm) (Pt Warm) -Tenderness on Palpation (Ana-wound No Yes Skin Appearance) -Ulcer Cleansing Rinsed/ Rinsed/ Irrigated with Irrigated with Saline Saline -Foul Odor after Cleansing No No -Anesthetic Used 5% Lidocaine 5% Lidocaine Gel Gel WC - Nurse 2 - General Ulcer CM Notes Start: 05/28/24 11:24 Freq: Status: Active Protocol: Activity Type Activity Date Activity User E-sign Co-sign Detail Recorded Client Recorded Date Recorded By Document 05/28/24 11:50 [id number] 05/28/24 11:54 Document 06/11/24 12:16 [id number] 06/11/24 12:21 05/28/24 06/11/24 11:50 12:16 Wound Center Nurse 2 #1 UMBILICUS -Time 11:50 12:20 -Correct Patient Yes Yes -Correct Side, Site, Position Yes Yes -Correct Procedure Yes No -Procedure Performed Yes No -Type of Procedure Debridement -Clinical Debridement Subcutaneous -Tissue Removed Subcutaneous -Post Debridement (cm) - Length 1.0 -Post Debridement (cm) - Width 0.3 -Post Debridement (cm) - Depth 2.3 -Total Square (Post) (cm) 0.30 -Area of Debridement (cm) - Length 1.0 -Area of Debridement (cm) - Width 0.3 -Total Square (Area) (cm) 0.30 -Tunneling No -Undermining/Tunneling No -Circular Undermining No -Wound/Ulcer Outcome Not Healed Not Healed -Ulcer Cleansing Rinsed/ Irrigated with Saline -Foul Odor after Cleansing No -Bioengineered Tissue No -Bleeding Controlled with Pressure -Treatment Response Procedure Tolerated Well -Debridement - Subq, 1st 20sq cm Yes -Wound Comment(s) recommend going to ED Pain Scale: 0-10 Numeric Is Patient Pain Free? Yes Yes WC - Nurse 3 - General Ulcer D/C NN Start: 05/28/24 11:24 Freq: Status: Active Protocol: Activity Type Activity Date Activity User E-sign Co-sign Detail Recorded Client Recorded Date Recorded By Document 06/11/24 12:28 ML [id number] 06/11/24 12:30 ML 06/11/24 12:28 Wound Care Center Nurse 3 #1 UMBILICUS -Ulcer Cleansing Rinsed/ Irrigated with Saline -Primary Dressing Applied Nugauze, Iodoform 1in -Primary Dressing Covered/Secured with Dry Gauze, Secured with Tape -Nugauze, Iodoform 1in 1 Pain Scale: 0-10 Numeric Is Patient Pain Free? No Assessment/Plan Assessment/Plan (1) Nonhealing surgical wound: CODE(S): T81.89XA - Other complications of procedures, not elsewhere classified, initial encounter (2) Postoperative abscess: CODE(S): T81.49XA - Infection following a procedure, other surgical site, initial encounter (3) Obesity: CODE(S): E66.9 - Obesity, unspecified (4) Tobacco abuse: CODE(S): Z72.0 - Tobacco use PLAN: Plan No debridement completed today. As above, she reports a 3-day history of increased drainage, pain and feeling of unwell. Reports fever. Erythema, differential warmth and tenderness appreciated on examination. Concern for recurrent abscess/panniculitis. Strongly recommend urgent/emergent evaluation. She was advised that it is best she goes back to [facility] Where she had her surgical management/abscess drainage most recently. She was transferred from [place] to [facility] at her last presentation. She voiced understanding and states that she will go later today however, she was advised to go there as soon as possible. I also do not think that going forward the wound center is appropriate, she would benefit from surgical exploration due to recurrent abscesses/infection and non healing surgical wound. She voiced understanding. If not admitted today, will refer to [place] general surgeon/plastic surgery for second opinion as she states that she has not had much help otherwise. She was advised to call. This note was generated with [employer] dictation software. It may contain incorrect words, spelling, and punctuation that were not noted in checking the note before signing.
== END 2024-06-12 23:59 | disposition home or self-care (01) ==
LOC: WC 11:15
PROVIDERS: PCP Nurse Practitioner Family; Referring Provider Nurse Practitioner Family; Visit Provider Internal Medicine
DX: T81.89XA Other complications of procedures, not elsewhere classified, initial encounter (principal); Z68.43 Body mass index [BMI] 50.0-59.9, adult; Z87.891 Personal history of nicotine dependence; E66.9 Obesity, unspecified; T81.49XA Infection following a procedure, other surgical site, initial encounter
CPT/HCPCS: 11042; 99213; G0463

== ENCOUNTER 2024-11-04 10:00 | Outpatient (RCR) | payer MEDICAID, SELFPAY ==
[2024-11-04 10:40] VITALS: BP 157/103; PULSE 77; RESP 18; TEMP 36.9; BMI 50.9
--- NOTE | 2024-11-04 13:22 | PCM.WC.HP ---
History of Present Illness Date of Service: 11/04/24 Chief Complaint: Non healing surgical wound History of Wound: Ms. Mendoza is a 28 year old who presents due to non healing abdominal wound. S/p Hernia surgery about 3 months ago and since then, there has been non closure. She was advised to follow-up at [facility] By her primary surgeon at [place] as she developed a postop abscess. Per patient, she states that this was drained and she was treated for a Pseudomonas infection. Has been on 4 courses of ciprofloxacin. Has been packing the area. She reports pain. No known history of diabetes mellitus. History of tobacco abuse. No chills, fever or feeling of unwell reported at this time. Patient had another surgery in [place] and they removed all mesh in her abdomen and now she has an open wound that has to be closed. Had a wound VAC of their own on it but it never worked properly and was removed by her primary care doctor. She states cultures were done and that it was a clean wound. Does have a distinct odor. [facility] Medical History Depression Tobacco abuse Obesity Postoperative abscess Nonhealing surgical wound Endometriosis Hypertension Home Medications ?Medication ?Instructions ?Recorded ?Last Taken ?Type acetaminophen 500 mg tablet 1,000 mg (2 x 500 mg) PO Q6H PRN 11/03/24 Unknown Rx (Tylenol Extra Strength) pain 30 days #90 tabs bupropion HCl 150 mg tablet,12 hr 150 mg PO BID 30 days #60 ea 11/03/24 Unknown Rx sustained-release cetirizine 10 mg tablet 10 mg PO QDAY #90 tabs 11/03/24 Unknown Rx lisinopril 20 mg tablet 20 mg PO QDAY #90 tabs 11/03/24 Unknown Rx oxycodone 5 mg tablet 5 mg PO Q12H PRN pain 10 days #20 11/03/24 Unknown Rx tabs Allergy/AdvReac Type Severity Reaction Status Date / Time ketorolac (From Toradol) Allergy Intermediate Hives Verified 11/04/24 10:55 ondansetron HCl (From Zofran Allergy Hives Verified 11/04/24 10:55 (as hydrochloride)) tramadol Allergy Hives Verified 11/04/24 10:55 trazodone Allergy Hives Verified 11/04/24 10:55 Family History Mother Diabetes Hypertension Myocardial infarction Father Myocardial infarction Heart disease Surgical History History of cholecystectomy Social History (Updated 11/03/24 @ 08:51 by Joelle Barlow MA) adopted: No household members: spouse, family and children number of children: 4 current occupational status: unemployed pets and animals: Yes pets and animals: cat(s) and dog(s) sexually active: Yes Smoking Status: Current every day smoker tobacco type: cigarettes Tobacco: How many years used: 11 alcohol intake: never substance use type: does not use caffeine: Yes (4-6) Type: carbonated beverages frequency: daily do you feel safe at home: Yes ROS Constitutional Constitutional: Reports systems reviewed and no addt'l complaints, except as documented Eyes Eyes: Reports systems reviewed and no addt'l complaints, except as documented ENT HEENT: Reports systems reviewed and no addt'l complaints, except as documented Cardiovascular Cardiovascular: Reports systems reviewed and no addt'l complaints, except as documented Respiratory/Chest Respiratory/Chest: Reports systems reviewed and no addt'l complaints, except as documented Gastrointestinal Gastrointestinal: Reports systems reviewed and no addt'l complaints, except as documented Genitourinary Genitourinary: Reports systems reviewed and no addt'l complaints, except as documented Musculoskeletal Musculoskeletal: Reports systems reviewed and no addt'l complaints, except as documented Integumentary Integumentary: Reports wounds and other Details: Open abdominal wound with depth down to her organs. Neurologic Neurologic: Reports systems reviewed and no addt'l complaints, except as documented Psychiatric Psychiatric: Reports systems reviewed and no addt'l complaints, except as documented Endocrine Endocrinology: Reports systems reviewed and no addt'l complaints, except as documented Hematologic/Lymphatic Hematologic/Lymphatic: Reports systems reviewed and no addt'l complaints, except as documented Allergic/Immunologic Allergic/Immunologic: Reports systems reviewed and no addt'l complaints, except as documented Vital Signs Vital Signs Vital Signs: 11/04/24 10:40 Temperature 98.4 F Temperature Source Temporal Pulse Rate 77 Respiratory Rate 18 Blood Pressure 157/103 H Blood Pressure Mean 121 Blood Pressure Source Monitor Weight Weight: 296 lb 9.092 oz Body Mass Index (BMI) 50.9 Physical Exam Const oriented x3 General Appearance: cooperative Exam Limitations: no limitations HEENT normocephalic Eyes General Eye: normal appearance of both eyes Neck full ROM General: normal visual inspection Resp normal respiratory effort Effort and Inspection: able to speak in complete sentences Auscultation: clear to auscultation bilaterally Cardio regular rate and regular rhythm Palpation: normal PMI Rate: regular rate Rhythm: regular rhythm GI Palpation: soft and no hepatosplenomegaly Extremity normal to inspection Skin Skin Narrative: Open wound to abdomen postoperative after removing mesh left open to heal out positive depth down to organs can see her stomach. Neuro oriented x3 Psych Appearance: grossly normal Speech: normal speech Thought Content: normal thought content Judgement: judgement good Debridement Note Debridement Note Post-Debridement Measurements and Additional Note: Post-Debridement Measurements/Treatment WC - Nurse 1 - General Ulcer Assessment Start: 11/04/24 10:40 Freq: Status: Active Protocol: RALPH Activity Type Activity Date Activity User E-sign Co-sign Detail Recorded Client Recorded Date Recorded By Document 11/04/24 10:40 DL [id number] 11/04/24 10:53 DL 11/04/24 10:40 WC - Today's Visit Information Type of service Initial Visit Arrival Mode Ambulatory Transfer Assistance None Patient Identification Verified (Name & Yes ) Patient Requires Transmission-Based No Precautions Height and Weight Height 5 ft 4 in Weight 296 lb 9.092 oz Weight in Pounds 296.6 lbs Body Mass Index (BMI) 50.9 BMI Classification Obese Vital Signs Temperature (97.8 F-99.1 F) 98.4 F Temperature Source Temporal Pulse Rate (60-100) 77 Pulse Location Monitor Respiratory Rate (12-18) 18 Respiratory rate source Observation Blood Pressure (90/60-120/80) 157/103 H Blood Pressure Mean 121 Source Monitor Pain Scale: 0-10 Numeric Is Patient Pain Free? Yes - Nurse 1 - General Ulcer Measurement Start: 11/04/24 10:40 Freq: Status: Active Protocol: Activity Type Activity Date Activity User E-sign Co-sign Detail Recorded Client Recorded Date Recorded By Document 11/04/24 10:40 DL [id number] 11/04/24 10:53 DL 11/04/24 10:40 Wound Center Nurse 1 #1 UMBILICUS -Current Size (cm) - Length 13 -Current Size (cm) - Width 6.8 -Current Size (cm) - Depth 3.4 -Total Square Cm 88.4 -Photo Taken Yes -Exudate Amt Medium -Exudate Type Serosanguineous -Wound Margin Distinct, Outline Attached -Granulation Amt Large (67-100%) -Granulation Quality [place],Red -Necrosis Amt None Present (0 %) -Structure Exposed N/A -Texture (Ana-wound Skin Appearance) Scarring -Moisture (Ana-wound Skin Appearance) No Abnormality -Color (Ana-wound Skin Appearance) No Abnormality -Temperature (Ana-wound Skin No Abnormality Appearance) (Pt Warm) -Ulcer Cleansing Soap and Water -Foul Odor after Cleansing No -Anesthetic Used 4% Lidocaine Solution ELADIO - Nurse 2 - General Ulcer CM Notes Start: 11/04/24 10:40 Freq: Status: Active Protocol: Activity Type Activity Date Activity User E-sign Co-sign Detail Recorded Client Recorded Date Recorded By Document 11/04/24 11:09 [facility] [id number] 11/04/24 11:20 [facility] 11/04/24 11:09 Wound Center Nurse 2 -Time 11:10 -Correct Patient Yes -Correct Side, Site, Position Yes -Correct Procedure Yes -Procedure Performed Yes -Type of Procedure Debridement -Clinical Debridement Muscle / Fascia -Tissue Removed Muscle,Fascia -Post Debridement (cm) - Length 13.5 -Post Debridement (cm) - Width 6.5 -Post Debridement (cm) - Depth 4.5 -Total Square (Post) (cm) 87.75 -Area of Debridement (cm) - Length 13.5 -Area of Debridement (cm) - Width 6.5 -Total Square (Area) (cm) 87.75 -Tunneling No -Undermining/Tunneling No -Circular Undermining No -Wound/Ulcer Outcome Not Healed -Ulcer Cleansing Rinsed/ Irrigated with Saline -Foul Odor after Cleansing No -Bioengineered Tissue No -Bleeding Controlled with Pressure -Treatment Response Procedure Tolerated Well -Debridement - Muscle / Fascia, 1st Yes 20sq cm -Debridement, Muscle/Fascia, ea addt'l 4 20sq cm or part thereof Pain Scale: 0-10 Numeric Is Patient Pain Free? Yes ELDAIO - Nurse 3 - General Ulcer D/C NN Start: 11/04/24 10:40 Freq: Status: Active Protocol: Activity Type Activity Date Activity User E-sign Co-sign Detail Recorded Client Recorded Date Recorded By Document 11/04/24 11:39 DL [id number] 11/04/24 11:41 DL 11/04/24 11:39 Wound Care Center Nurse 3 #1 UMBILICUS -Ulcer Cleansing Soap and Water -Primary Dressing Applied Hysept -Other Dressing dakins -Primary Dressing Covered/Secured with Dry Gauze & Roll Gauze, Secured with Tape -Other Covering ABD -Hysept 1 Treatment Response Procedure Tolerated Well Pain Scale: 0-10 Numeric Is Patient Pain Free? Yes WC - Visit Discharge Discharge Condition Stable Ambulatory Status Ambulatory Transportation Private Auto Assessment/Plan Assessment/Plan (1) Surgical wound present: CODE(S): T14.8XXA - Other injury of unspecified body region, initial encounter (2) Acute pain due to trauma: CODE(S): G89.11 - Acute pain due to trauma (3) Obesity: CODE(S): E66.9 - Obesity, unspecified QUALIFIERS: Obesity type: due to excess calories Obesity classification: unspecified obesity classification Serious obesity comorbidity presence: with serious comorbidity Qualified Code(s): E66.09 - Other obesity due to excess calories (4) Nonhealing surgical wound: CODE(S): T81.89XA - Other complications of procedures, not elsewhere classified, initial encounter QUALIFIERS: Encounter type: initial encounter Qualified Code(s): T81.89XA - Other complications of procedures, not elsewhere classified, initial encounter PLAN: Wash wound with antibacterial soap and water and cleanse. Pack wound with moistened Dakin's with gauze dressing cover with an ABD and tape Ordered was a wound VAC to be sent to the house and then had can be applied by home health care that was called and. Patient is to follow-up next Saturday cultures were obtained obtained will call with results. Patient is to eat a better balanced diet of proteins and if she is intolerable to eating proteins and she will need to drink drinks that have 30 g of protein. Follow-up in 1 week
--- NOTE | 2024-11-05 08:25 | WC ---
PHOTO-ABD 11/04/24
== END 2024-11-12 23:59 | disposition home or self-care (01) ==
LOC: WC 10:00
PROVIDERS: PCP Nurse Practitioner Family; Visit Provider Nurse Practitioner
DX: T81.89XA Other complications of procedures, not elsewhere classified, initial encounter (principal); E66.09 Other obesity due to excess calories; F17.210 Nicotine dependence, cigarettes, uncomplicated; I10 Essential (primary) hypertension; Z90.49 Acquired absence of other specified parts of digestive tract; G89.11 Acute pain due to trauma
CPT/HCPCS: 11043; 11046; 87070; 87075; 87077; 87186; 87205; 99214; G0463

== ENCOUNTER 2024-12-09 10:30 | Outpatient (RCR) | payer MEDICAID, SELFPAY ==
[2024-11-13 13:19] VITALS: BP 157/109; PULSE 91; RESP 16; TEMP 36.3
[2024-11-18 10:45] VITALS: BP 161/113; PULSE 102; RESP 16; TEMP 36.6
--- NOTE | 2024-11-18 11:40 | PN.PCM_ITS ---
History of Present Illness Date of Service: 11/18/24 Chief Complaint: Non healing surgical wound History of Wound: Ms. Mendoza is a 28 year old who presents due to non healing abdominal wound. S/p Hernia surgery about 3 months ago and since then, there has been non closure. She was advised to follow-up at [facility] By her primary surgeon at [place] as she developed a postop abscess. Per patient, she states that this was drained and she was treated for a Pseudomonas infection. Has been on 4 courses of ciprofloxacin. Has been packing the area. She reports pain. No known history of diabetes mellitus. History of tobacco abuse. No chills, fever or feeling of unwell reported at this time. Patient had another surgery in [place] and they removed all mesh in her abdomen and now she has an open wound that has to be closed. Had a wound VAC of their own on it but it never worked properly and was removed by her primary care doctor. She states cultures were done and that it was a clean wound. Does have a distinct odor. Progress of Wound: She started using the wound VAC on Saturday and it is amazing today she is almost closed. Her organs were showing the last time I saw her in this week she is almost covered she has 1 small area at the base that still open deep but otherwise she is really filled in nicely no sign of infection cultures came back very rare and no cocci. Subjective Subjective Patient is very pleased with outcome she is never healed so quickly she said Objective Data Objective Data Will continue using the wound VAC at 150 mmHg and patient can wait a week if she wants or she can come in for change her mother can change it during the week. Vital Signs: Vital Signs Temp Pulse Resp BP O2 Del Method 97.8 F 102 H 16 161/113 H Room Air 11/18/24 10:45 11/18/24 10:45 11/18/24 10:45 11/18/24 10:45 11/13/24 13:19 Oxygen Delivery Method Room Air Lab / Micro Data Attestation: I reviewed the patient's lab results. Physical Exam Const oriented x3 General Appearance: cooperative Exam Limitations: no limitations HEENT normocephalic Eyes General Eye: normal appearance of both eyes Neck full ROM General: normal visual inspection Resp normal respiratory effort Effort and Inspection: able to speak in complete sentences Auscultation: clear to auscultation bilaterally Cardio regular rate and regular rhythm Palpation: normal PMI Rate: regular rate Rhythm: regular rhythm GI Palpation: soft and no hepatosplenomegaly Extremity normal to inspection Skin Skin Narrative: Open wound to abdomen postoperative after removing mesh left open to heal out positive depth down to organs can see her stomach. Neuro oriented x3 Psych Appearance: grossly normal Speech: normal speech Thought Content: normal thought content Judgement: judgement good Debridement Note Debridement Note Wound debrided: Abdominal dehisced wound Type of Debridement: Excisional debridement Anesthesia Used: 5% Lidocaine Gel Depth: to muscle Percentage of wound debrided: 100 Instrument Used: 5mm curette Tissue Removed: Fibrin Severity: Fat Layer Exposed Amount of bleeding with debridement: Moderate Bleeding Controlled with: Compression and gauze Patient tolerated procedure: Patient tolerated procedure well Post-Debridement Measurements and Additional Note: Post-Debridement Measurements/Treatment - Nurse 1 - General Ulcer Assessment Start: 11/13/24 13:19 Freq: Status: Active Protocol: ELADIO.FLEX Activity Type Activity Date Activity User E-sign Co-sign Detail Recorded Client Recorded Date Recorded By Document 11/13/24 13:19 KW [id number] 11/13/24 13:21 KW Document 11/18/24 10:45 DL [id number] 11/18/24 10:55 DL 11/13/24 11/18/24 13:19 10:45 - Today's Visit Information Type of service Nurse-only Follow-up Visit Visit (Physician/CHOIRMASTER ) Arrival Mode Ambulatory Transfer Assistance None Accompanied by mother Patient Identification Verified (Name & Yes Yes ) Patient Requires Transmission-Based No Precautions Vital Signs Temperature (97.8 F-99.1 F) 97.3 F L 97.8 F Temperature Source Temporal Temporal Pulse Rate (60-100) 91 102 H Pulse Location Monitor Monitor Respiratory Rate (12-18) 16 16 Respiratory rate source Observation Observation Oxygen Delivery Method Room Air Blood Pressure (90/60-120/80) 157/109 H 161/113 H Blood Pressure Mean (mm Hg) 125 129 Source Monitor Monitor Position Sitting Blood Pressure Location Left Forearm History Since Last Visit- (Skip if this is Patient's initial visit) Have you changed medications since your No No last visit? Any new allergies or adverse reactions No No Had a fall/change in ADL's that may No No increase risk of falls Signs or symptoms of abuse and/or No No neglect since last visit Have you been in the hospital since your No No last visit? Has dressing in place as prescribed Yes Yes Has compression in place as prescribed N/A N/A Has offloadiing in place as prescribed N/A N/A Experienced any changes in pain level or No No management Left Footwear Regular Shoe Right Footwear Regular Shoe Pain Scale: 0-10 Numeric Is Patient Pain Free? Yes Yes WC - Nurse 1 - General Ulcer Measurement Start: 11/13/24 13:19 Freq: Status: Active Protocol: Activity Type Activity Date Activity User E-sign Co-sign Detail Recorded Client Recorded Date Recorded By Document 11/18/24 10:45 DL [id number] 11/18/24 10:55 DL 11/18/24 10:45 Wound Center Nurse 1 #1 abdomen -Current Size (cm) - Length 9.5 -Current Size (cm) - Width 3.8 -Current Size (cm) - Depth 3 -Total Square Cm 36.10 -Photo Taken Yes -Exudate Amt Medium -Exudate Type Serosanguineous -Wound Margin Distinct, Outline Attached -Granulation Amt Large (67-100%) -Granulation Quality Red -Necrosis Amt Small (1-33%) -Necrotic Tissue Type Adherent Slough -Structure Exposed N/A -Texture (Ana-wound Skin Appearance) Scarring -Moisture (Ana-wound Skin Appearance) No Abnormality -Color (Ana-wound Skin Appearance) No Abnormality -Temperature (Ana-wound Skin No Abnormality Appearance) (Pt Warm) -Tenderness on Palpation (Ana-wound No Skin Appearance) -Ulcer Cleansing Soap and Water -Foul Odor after Cleansing No -Anesthetic Used 4% Lidocaine Solution WC - Nurse 2 - General Ulcer CM Notes Start: 11/13/24 13:19 Freq: Status: Active Protocol: Activity Type Activity Date Activity User E-sign Co-sign Detail Recorded Client Recorded Date Recorded By Document 11/18/24 11:06 DS [id number] 11/18/24 11:09 DS 11/18/24 11:06 Wound Center Nurse 2 -Time 11:06 -Correct Patient Yes -Correct Side, Site, Position Yes -Correct Procedure Yes -Procedure Performed Yes -Type of Procedure Debridement -Clinical Debridement Muscle / Fascia -Tissue Removed Muscle,Fascia -Post Debridement (cm) - Length 9.5 -Post Debridement (cm) - Width 4.0 -Post Debridement (cm) - Depth 3.2 -Total Square (Post) (cm) 38.00 -Area of Debridement (cm) - Length 9.5 -Area of Debridement (cm) - Width 4.0 -Total Square (Area) (cm) 38.00 -Tunneling No -Undermining/Tunneling No -Circular Undermining No -Wound/Ulcer Outcome Not Healed -Ulcer Cleansing Rinsed/ Irrigated with Saline -Foul Odor after Cleansing No -Bioengineered Tissue No -Bleeding Controlled with Pressure -Treatment Response Procedure Tolerated Well -Debridement - Muscle / Fascia, 1st Yes 20sq cm -Debridement, Muscle/Fascia, ea addt'l 1 20sq cm or part thereof Pain Scale: 0-10 Numeric Is Patient Pain Free? Yes - Nurse 3 - General Ulcer D/C NN Start: 11/13/24 13:19 Freq: Status: Active Protocol: Activity Type Activity Date Activity User E-sign Co-sign Detail Recorded Client Recorded Date Recorded By Document 11/13/24 13:19 KW [id number] 11/13/24 13:21 KW Document 11/18/24 11:31 DL [id number] 11/18/24 11:32 DL 11/13/24 11/18/24 13:19 11:31 Pain Scale: 0-10 Numeric Is Patient Pain Free? Yes Yes Wound Care Center Nurse 3 #1 abdomen -Ulcer Cleansing Soap and Water Soap and Water -Foul Odor after Cleansing No -Negative Pressure Wound Therapy Start Continue -Pieces of Black Foam Inserted 1 -NPWT Application Charge NPWT > 50 sq cm NPWT & ($) Debridement (nc ) -Setting (mmHg) 150 150 -Negative Pressure is Continuous Continuous Treatment Response Procedure Tolerated Well WC - Visit Discharge Discharge Condition Stable Stable Ambulatory Status Ambulatory Ambulatory Transportation Private Auto Private Auto Medication Reconcilliation completed & No provided to patient/care provider Clinical Summary of Care Provided Yes Assessment/Plan Assessment/Plan (1) Surgical wound present: CODE(S): T14.8XXA - Other injury of unspecified body region, initial encounter (2) Acute pain due to trauma: CODE(S): G89.11 - Acute pain due to trauma (3) Obesity: CODE(S): E66.9 - Obesity, unspecified QUALIFIERS: Obesity classification: unspecified obesity classification Obesity type: due to excess calories Serious obesity comorbidity presence: with serious comorbidity Qualified Code(s): E66.09 - Other obesity due to excess calories (4) Nonhealing surgical wound: CODE(S): T81.89XA - Other complications of procedures, not elsewhere classified, initial encounter QUALIFIERS: Encounter type: initial encounter Qualified Code(s): T81.89XA - Other complications of procedures, not elsewhere classified, initial encounter PLAN: Continue the wound VAC at 150 mmHg over the abdomen follow-up in 1 week. If needs to be changed may change during the week otherwise she can leave it on all week if she prefers depending on how much drainage she is getting. Went over her cultures they were all rare and no cocci so that was good.
--- NOTE | 2024-11-19 09:50 | WC ---
PHOTO-ABD 11/18/24
[2024-11-25 09:02] VITALS: BP 138/94; PULSE 108; RESP 18; TEMP 36.6
--- NOTE | 2024-11-25 10:02 | PCM.WC.PN ---
History of Present Illness Date of Service: 11/25/24 Chief Complaint: Non healing surgical wound History of Wound: Ms. Mendoza is a 28 year old who presents due to non healing abdominal wound. S/p Hernia surgery about 3 months ago and since then, there has been non closure. She was advised to follow-up at [facility] By her primary surgeon at [place] as she developed a postop abscess. Per patient, she states that this was drained and she was treated for a Pseudomonas infection. Has been on 4 courses of ciprofloxacin. Has been packing the area. She reports pain. No known history of diabetes mellitus. History of tobacco abuse. No chills, fever or feeling of unwell reported at this time. Patient had another surgery in [place] and they removed all mesh in her abdomen and now she has an open wound that has to be closed. Had a wound VAC of their own on it but it never worked properly and was removed by her primary care doctor. She states cultures were done and that it was a clean wound. Does have a distinct odor. Progress of Wound: She started using the wound VAC only 1-1/2 weeks ago and is so much better. She has 1 small dot that is very deep and has not closed yet but it is doing very well. This week her dog jumped on her and caught his paws and her tubing and ripped it off. She has been without the wound VAC for a couple of days and has been packing it with a the Dakin's. She continues with the 1 small area that is super deep but other than that it is filling in nicely and closing well. She denies any pain nausea vomiting discoloration the skin is healing very nicely. Subjective Subjective Patient has been compliant with the wound VAC Objective Data Objective Data As stated above the wound is healing it is about a quarter the size it was it still has that 1 deep area and if no sign of infection no odor noted Vital Signs: Vital Signs Temp Pulse Resp BP O2 Del Method 97.8 F 108 H 18 138/94 H Room Air 11/25/24 09:02 11/25/24 09:02 11/25/24 09:02 11/25/24 09:02 11/13/24 13:19 Oxygen Delivery Method Room Air Lab / Micro Data Attestation: I reviewed the patient's lab results. Physical Exam Const oriented x3 General Appearance: cooperative Exam Limitations: no limitations HEENT normocephalic Eyes General Eye: normal appearance of both eyes Neck full ROM General: normal visual inspection Resp normal respiratory effort Effort and Inspection: able to speak in complete sentences Auscultation: clear to auscultation bilaterally Cardio regular rate and regular rhythm Palpation: normal PMI Rate: regular rate Rhythm: regular rhythm GI Palpation: soft and no hepatosplenomegaly Extremity normal to inspection Skin Skin Narrative: Open wound to abdomen postoperative after removing mesh left open to heal out positive depth down to organs can see her stomach. Neuro oriented x3 Psych Appearance: grossly normal Speech: normal speech Thought Content: normal thought content Judgement: judgement good Debridement Note Debridement Note Wound debrided: Abdominal dehisced wound Type of Debridement: Excisional debridement Anesthesia Used: 5% Lidocaine Gel Depth: to muscle Percentage of wound debrided: 100 Instrument Used: 5mm curette Tissue Removed: Fibrin devitalized tissue Severity: Fat Layer Exposed Amount of bleeding with debridement: Moderate Bleeding Controlled with: Compression and gauze Patient tolerated procedure: Patient tolerated procedure well Post-Debridement Measurements and Additional Note: Post-Debridement Measurements/Treatment [facility] Nurse 1 - General Ulcer Assessment Start: 11/13/24 13:19 Freq: Status: Active Protocol: WC.ALLENT Activity Type Activity Date Activity User E-sign Co-sign Detail Recorded Client Recorded Date Recorded By Document 11/13/24 13:19 KW [id number] 11/13/24 13:21 KW Document 11/18/24 10:45 DL [id number] 11/18/24 10:55 DL Document 11/25/24 09:02 DL [id number] 11/25/24 09:10 DL 11/13/24 11/18/24 11/25/24 13:19 10:45 09:02 - Today's Visit Information Type of service Nurse-only Follow-up Visit Follow-up Visit Visit (Physician/MOTION GRAPHICS ARTIST (Physician/MOTION GRAPHICS ARTIST ) ) Arrival Mode Ambulatory Ambulatory Transfer Assistance None None Accompanied by mother Patient Identification Verified (Name & Yes Yes Yes ) Patient Requires Transmission-Based No No Precautions Vital Signs Temperature (97.8 F-99.1 F) 97.3 F L 97.8 F 97.8 F Temperature Source Temporal Temporal Temporal Pulse Rate (60-100) 91 102 H 108 H Pulse Location Monitor Monitor Monitor Respiratory Rate (12-18) 16 16 18 Respiratory rate source Observation Observation Observation Oxygen Delivery Method Room Air Blood Pressure (90/60-120/80) 157/109 H 161/113 H 138/94 H Blood Pressure Mean (mm Hg) 125 129 108 Source Monitor Monitor Monitor Position Sitting Blood Pressure Location Left Forearm History Since Last Visit- (Skip if this is Patient's initial visit) Have you changed medications since your No No No last visit? Any new allergies or adverse reactions No No No Had a fall/change in ADL's that may No No No increase risk of falls Signs or symptoms of abuse and/or No No No neglect since last visit Have you been in the hospital since your No No No last visit? Has dressing in place as prescribed Yes Yes Yes Has compression in place as prescribed N/A N/A N/A Has offloadiing in place as prescribed N/A N/A N/A Experienced any changes in pain level or No No No management Left Footwear Regular Shoe Right Footwear Regular Shoe Pain Scale: 0-10 Numeric Is Patient Pain Free? Yes Yes Yes WC - Nurse 1 - General Ulcer Measurement Start: 11/13/24 13:19 Freq: Status: Active Protocol: Activity Type Activity Date Activity User E-sign Co-sign Detail Recorded Client Recorded Date Recorded By Document 11/18/24 10:45 DL [id number] 11/18/24 10:55 DL Document 11/25/24 09:02 DL [id number] 11/25/24 09:10 DL 11/18/24 11/25/24 10:45 09:02 Wound Center Nurse 1 #1 abdomen -Current Size (cm) - Length 9.5 8 -Current Size (cm) - Width 3.8 3.3 -Current Size (cm) - Depth 3 3.1 -Total Square Cm 36.10 26.4 -Photo Taken Yes Yes -Exudate Amt Medium Large -Exudate Type Serosanguineous Serosanguineous -Wound Margin Distinct, Distinct, Outline Outline Attached Attached -Granulation Amt Large (67-100%) Medium (34-66%) -Granulation Quality Red Vader -Necrosis Amt Small (1-33%) Medium (34-66%) -Necrotic Tissue Type Adherent Slough Adherent Slough -Structure Exposed N/A N/A -Texture (Ana-wound Skin Appearance) Scarring Excoriation, Scarring,Rash -Moisture (Ana-wound Skin Appearance) No Abnormality No Abnormality -Color (Ana-wound Skin Appearance) No Abnormality No Abnormality -Temperature (Ana-wound Skin No Abnormality No Abnormality Appearance) (Pt Warm) (Pt Warm) -Tenderness on Palpation (Ana-wound No No Skin Appearance) -Ulcer Cleansing Soap and Water Soap and Water -Foul Odor after Cleansing No No -Anesthetic Used 4% Lidocaine 5% Lidocaine Solution Gel WC - Nurse 2 - General Ulcer CM Notes Start: 11/13/24 13:19 Freq: Status: Active Protocol: Activity Type Activity Date Activity User E-sign Co-sign Detail Recorded Client Recorded Date Recorded By Document 11/18/24 11:06 DS [id number] 11/18/24 11:09 DS Document 11/25/24 09:18 [facility] [id number] 11/25/24 09:22 [facility] 11/18/24 11/25/24 11:06 09:18 Wound Center Nurse 2 #1 abdomen -Time 11:06 09:18 -Correct Patient Yes Yes -Correct Side, Site, Position Yes Yes -Correct Procedure Yes Yes -Procedure Performed Yes Yes -Type of Procedure Debridement Debridement -Clinical Debridement Muscle / Fascia Muscle / Fascia -Tissue Removed Muscle,Fascia Muscle,Fascia -Post Debridement (cm) - Length 9.5 8.4 -Post Debridement (cm) - Width 4.0 3.5 -Post Debridement (cm) - Depth 3.2 2.5 -Total Square (Post) (cm) 38.00 29.40 -Area of Debridement (cm) - Length 9.5 8.4 -Area of Debridement (cm) - Width 4.0 3.5 -Total Square (Area) (cm) 38.00 29.40 -Tunneling No -Undermining/Tunneling No -Circular Undermining No -Wound/Ulcer Outcome Not Healed Not Healed -Ulcer Cleansing Rinsed/ Rinsed/ Irrigated with Irrigated with Saline Saline -Foul Odor after Cleansing No No -Bioengineered Tissue No No -Bleeding Controlled with Pressure Pressure -Treatment Response Procedure Procedure Tolerated Well Tolerated Well -Debridement - Muscle / Fascia, 1st Yes Yes 20sq cm -Debridement, Muscle/Fascia, ea addt'l 1 1 20sq cm or part thereof Pain Scale: 0-10 Numeric Is Patient Pain Free? Yes Yes ELADIO - Nurse 3 - General Ulcer D/C NN Start: 11/13/24 13:19 Freq: Status: Active Protocol: Activity Type Activity Date Activity User E-sign Co-sign Detail Recorded Client Recorded Date Recorded By Document 11/13/24 13:19 KW [id number] 11/13/24 13:21 KW Document 11/18/24 11:31 DL [id number] 11/18/24 11:32 DL Document 11/25/24 09:27 BM [id number] 11/25/24 09:29 BM 11/13/24 11/18/24 11/25/24 13:19 11:31 09:27 Pain Scale: 0-10 Numeric Is Patient Pain Free? Yes Yes Yes Wound Care Center Nurse 3 #1 abdomen -Ulcer Cleansing Soap and Water Soap and Water Rinsed/ Irrigated with Saline -Foul Odor after Cleansing No No -Negative Pressure Wound Therapy Start Continue Continue -Pieces of Black Foam Inserted 1 1 -NPWT Application Charge NPWT > 50 sq cm NPWT & NPWT & ($) Debridement (nc Debridement (nc ) ) -Setting (mmHg) 150 150 -Negative Pressure is Continuous Continuous Continuous -Other Dressing vac applied per dl pulp roller Treatment Response Procedure Tolerated Well WC - Visit Discharge Discharge Condition Stable Stable Stable Ambulatory Status Ambulatory Ambulatory Ambulatory Transportation Private Auto Private Auto Private Auto Medication Reconcilliation completed & No provided to patient/care provider Clinical Summary of Care Provided Yes Assessment/Plan Assessment/Plan (1) Surgical wound present: CODE(S): T14.8XXA - Other injury of unspecified body region, initial encounter (2) Acute pain due to trauma: CODE(S): G89.11 - Acute pain due to trauma (3) Obesity: CODE(S): E66.9 - Obesity, unspecified QUALIFIERS: Obesity classification: unspecified obesity classification Obesity type: due to excess calories Serious obesity comorbidity presence: with serious comorbidity Qualified Code(s): E66.09 - Other obesity due to excess calories (4) Nonhealing surgical wound: CODE(S): T81.89XA - Other complications of procedures, not elsewhere classified, initial encounter QUALIFIERS: Encounter type: initial encounter Qualified Code(s): T81.89XA - Other complications of procedures, not elsewhere classified, initial encounter PLAN: Continue the wound VAC at 150 mmHg over the abdomen follow-up in 1 week. If needs to be changed may change during the week otherwise she can leave it on all week if she prefers depending on how much drainage she is getting. Went over her cultures they were all rare and no cocci so that was good.
--- NOTE | 2024-11-26 09:34 | WC ---
PHOTO-ABD 11/25/24
[2024-12-02 10:57] VITALS: BP 154/101; PULSE 102; RESP 18; TEMP 36.1
--- NOTE | 2024-12-02 12:05 | PN.PCM_ITS ---
History of Present Illness Date of Service: 12/02/24 Chief Complaint: Non healing surgical wound History of Wound: Ms. Mendoza is a 28 year old who presents due to non healing abdominal wound. S/p Hernia surgery about 3 months ago and since then, there has been non closure. She was advised to follow-up at [facility] By her primary surgeon at [place] as she developed a postop abscess. Per patient, she states that this was drained and she was treated for a Pseudomonas infection. Has been on 4 courses of ciprofloxacin. Has been packing the area. She reports pain. No known history of diabetes mellitus. History of tobacco abuse. No chills, fever or feeling of unwell reported at this time. Patient had another surgery in [place] and they removed all mesh in her abdomen and now she has an open wound that has to be closed. Had a wound VAC of their own on it but it never worked properly and was removed by her primary care doctor. She states cultures were done and that it was a clean wound. Does have a distinct odor. Progress of Wound: She has 1 small depth area that takes the wound down to about 2 and half centimeters. The rest of the wound looks like it is healing getting much smaller it keeps happening itself in size. She continues with the 1 small area that is super deep but other than that it is filling in nicely and closing well. She denies any pain nausea vomiting discoloration the skin is healing very nicely. Still has a distinct odor we will try to culture again and call her with the results. Subjective Subjective Patient is very pleased with outcomes she does have some skin sensitivity and it bothers her to have the that tape on her abdomen she is giving some red spots areas. Objective Data Objective Data Wound itself is healing very nicely about the quarter the size it was it still has 1 little depth area but it is improving. Will reculture just to make sure because she does have an odor not sure if it is hygiene or if it is wound. Vital Signs: Vital Signs Temp Pulse Resp BP O2 Del Method 97 F L 102 H 18 154/101 H Room Air 12/02/24 10:57 12/02/24 10:57 12/02/24 10:57 12/02/24 10:57 11/13/24 13:19 Oxygen Delivery Method Room Air Lab / Micro Data Attestation: I reviewed the patient's lab results. Physical Exam Const oriented x3 General Appearance: cooperative Exam Limitations: no limitations HEENT normocephalic Eyes General Eye: normal appearance of both eyes Neck full ROM General: normal visual inspection Resp normal respiratory effort Effort and Inspection: able to speak in complete sentences Auscultation: clear to auscultation bilaterally Cardio regular rate and regular rhythm Palpation: normal PMI Rate: regular rate Rhythm: regular rhythm GI Palpation: soft and no hepatosplenomegaly Extremity normal to inspection Skin Skin Narrative: Open wound to abdomen postoperative after removing mesh left open to heal out positive depth down to organs can see her stomach. Neuro oriented x3 Psych Appearance: grossly normal Speech: normal speech Thought Content: normal thought content Judgement: judgement good Debridement Note Debridement Note Wound debrided: Abdominal dehisced wound Type of Debridement: Excisional debridement Anesthesia Used: 5% Lidocaine Gel Depth: to muscle Percentage of wound debrided: 100 Instrument Used: 5mm curette Tissue Removed: Fibrin devitalized tissue Severity: Fat Layer Exposed Amount of bleeding with debridement: Moderate Bleeding Controlled with: Compression and gauze Patient tolerated procedure: Patient tolerated procedure well Post-Debridement Measurements and Additional Note: Post-Debridement Measurements/Treatment - Nurse 1 - General Ulcer Assessment Start: 11/13/24 13:19 Freq: Status: Active Protocol: RALPH Activity Type Activity Date Activity User E-sign Co-sign Detail Recorded Client Recorded Date Recorded By Document 11/13/24 13:19 KW [id number] 11/13/24 13:21 KW Document 11/18/24 10:45 DL [id number] 11/18/24 10:55 DL Document 11/25/24 09:02 DL [id number] 11/25/24 09:10 DL Document 12/02/24 10:57 RB [id number] 12/02/24 11:00 RB 11/13/24 11/18/24 11/25/24 13:19 10:45 09:02 - Today's Visit Information Type of service Nurse-only Follow-up Visit Follow-up Visit Visit (Physician/COMPUTER EQUIPMENT REPAIRER (Physician/COMPUTER EQUIPMENT REPAIRER ) ) Arrival Mode Ambulatory Ambulatory Transfer Assistance None None Accompanied by mother Patient Identification Verified (Name & Yes Yes Yes ) Patient Requires Transmission-Based No No Precautions Vital Signs Temperature (97.8 F-99.1 F) 97.3 F L 97.8 F 97.8 F Temperature Source Temporal Temporal Temporal Pulse Rate (60-100) 91 102 H 108 H Pulse Location Monitor Monitor Monitor Respiratory Rate (12-18) 16 16 18 Respiratory rate source Observation Observation Observation Oxygen Delivery Method Room Air Blood Pressure (90/60-120/80) 157/109 H 161/113 H 138/94 H Blood Pressure Mean (mm Hg) 125 129 108 Source Monitor Monitor Monitor Position Sitting Blood Pressure Location Left Forearm History Since Last Visit- (Skip if this is Patient's initial visit) Have you changed medications since your No No No last visit? Any new allergies or adverse reactions No No No Had a fall/change in ADL's that may No No No increase risk of falls Signs or symptoms of abuse and/or No No No neglect since last visit Have you been in the hospital since your No No No last visit? Has dressing in place as prescribed Yes Yes Yes Has compression in place as prescribed N/A N/A N/A Has offloadiing in place as prescribed N/A N/A N/A Experienced any changes in pain level or No No No management Left Footwear Regular Shoe Right Footwear Regular Shoe Pain Scale: 0-10 Numeric Is Patient Pain Free? Yes Yes Yes Abd -Description -Intensity -Duration (hours) -Pain Behavior -Pain Aggravating Factors -Alleviating Factors/Interventions -Effectiveness of Alleviating Factor/ Intervention 12/02/24 10:57 WC - Today's Visit Information Type of service Follow-up Visit (Physician/COMPUTER EQUIPMENT REPAIRER ) Arrival Mode Ambulatory Transfer Assistance None Accompanied by Patient Identification Verified (Name & Yes ) Patient Requires Transmission-Based No Precautions Vital Signs Temperature (97.8 F-99.1 F) 97 F L Temperature Source Temporal Pulse Rate (60-100) 102 H Pulse Location Monitor Respiratory Rate (12-18) 18 Respiratory rate source Observation Oxygen Delivery Method Blood Pressure (90/60-120/80) 154/101 H Blood Pressure Mean (mm Hg) 118 Source Monitor Position Semi-Fowlers Blood Pressure Location Left Arm History Since Last Visit- (Skip if this is Patient's initial visit) Have you changed medications since your No last visit? Any new allergies or adverse reactions No Had a fall/change in ADL's that may No increase risk of falls Signs or symptoms of abuse and/or No neglect since last visit Have you been in the hospital since your No last visit? Has dressing in place as prescribed Yes Has compression in place as prescribed N/A Has offloadiing in place as prescribed N/A Experienced any changes in pain level or No management Left Footwear Regular Shoe Right Footwear Regular Shoe Pain Scale: 0-10 Numeric Is Patient Pain Free? Yes Abd -Description Sharp,Throbbing -Intensity 6 -Duration (hours) Acute -Pain Behavior Withdrawal from Touch -Pain Aggravating Factors Exercise/ Activity, Walking -Alleviating Factors/Interventions Medication -Effectiveness of Alleviating Factor/ Moderately Intervention effective WC - Nurse 1 - General Ulcer Measurement Start: 11/13/24 13:19 Freq: Status: Active Protocol: Activity Type Activity Date Activity User E-sign Co-sign Detail Recorded Client Recorded Date Recorded By Document 11/18/24 10:45 DL [id number] 11/18/24 10:55 DL Document 11/25/24 09:02 DL [id number] 11/25/24 09:10 DL Document 12/02/24 10:57 RB [id number] 12/02/24 11:00 RB 11/18/24 11/25/24 12/02/24 10:45 09:02 10:57 Wound Center Nurse 1 #1 abdomen -Combined with other wound No -Current Size (cm) - Length 9.5 8 6.5 -Current Size (cm) - Width 3.8 3.3 2.8 -Current Size (cm) - Depth 3 3.1 1 -Total Square Cm 36.10 26.4 18.20 -Photo Taken Yes Yes Yes -Tunneling No -Undermining/Tunneling No -Circular Undermining No -Exudate Amt Medium Large Large -Exudate Type Serosanguineous Serosanguineous Serosanguineous -Wound Margin Distinct, Distinct, Distinct, Outline Outline Outline Attached Attached Attached -Granulation Amt Large (67-100%) Medium (34-66%) Large (67-100%) -Granulation Quality [place],Red -Slough/Fibrin Yes -Necrosis Amt Small (1-33%) Medium (34-66%) Medium (34-66%) -Necrotic Tissue Type Adherent Slough Adherent Slough Adherent Slough -Structure Exposed N/A N/A N/A -Texture (Ana-wound Skin Appearance) Scarring Excoriation, Assessed, Scarring,Rash Excoriation, Scarring -Moisture (Ana-wound Skin Appearance) No Abnormality No Abnormality Assessed -Color (Ana-wound Skin Appearance) No Abnormality No Abnormality Assessed -Temperature (Ana-wound Skin No Abnormality No Abnormality No Abnormality Appearance) (Pt Warm) (Pt Warm) (Pt Warm) -Tenderness on Palpation (Ana-wound No No No Skin Appearance) -Ulcer Cleansing Soap and Water Soap and Water Wound Cleanser -Foul Odor after Cleansing No No No -Anesthetic Used 4% Lidocaine 5% Lidocaine 4% Lidocaine Solution Gel Solution WC - Nurse 2 - General Ulcer CM Notes Start: 11/13/24 13:19 Freq: Status: Active Protocol: Activity Type Activity Date Activity User E-sign Co-sign Detail Recorded Client Recorded Date Recorded By Document 11/18/24 11:06 DS [id number] 11/18/24 11:09 DS Document 11/25/24 09:18 BM [id number] 11/25/24 09:22 BM Document 12/02/24 11:04 BM [id number] 12/02/24 11:12 [facility] 11/18/24 11/25/24 12/02/24 11:06 09:18 11:04 Wound Center Nurse 2 #1 abdomen -Time 11:06 09:18 11:04 -Correct Patient Yes Yes Yes -Correct Side, Site, Position Yes Yes Yes -Correct Procedure Yes Yes Yes -Procedure Performed Yes Yes Yes -Type of Procedure Debridement Debridement Debridement -Clinical Debridement Muscle / Fascia Muscle / Fascia Muscle / Fascia -Tissue Removed Muscle,Fascia Muscle,Fascia Muscle,Fascia -Post Debridement (cm) - Length 9.5 8.4 6.5 -Post Debridement (cm) - Width 4.0 3.5 2.8 -Post Debridement (cm) - Depth 3.2 2.5 2.1 -Total Square (Post) (cm) 38.00 29.40 18.20 -Area of Debridement (cm) - Length 9.5 8.4 6.5 -Area of Debridement (cm) - Width 4.0 3.5 2.8 -Total Square (Area) (cm) 38.00 29.40 18.20 -Tunneling No No -Undermining/Tunneling No No -Circular Undermining No No -Wound/Ulcer Outcome Not Healed Not Healed Not Healed -Ulcer Cleansing Rinsed/ Rinsed/ Rinsed/ Irrigated with Irrigated with Irrigated with Saline Saline Saline -Foul Odor after Cleansing No No No -Bioengineered Tissue No No No -Bleeding Controlled with Pressure Pressure Pressure -Treatment Response Procedure Procedure Procedure Tolerated Well Tolerated Well Tolerated Well -Debridement - Muscle / Fascia, 1st Yes Yes Yes 20sq cm -Debridement, Muscle/Fascia, ea addt'l 1 1 20sq cm or part thereof Pain Scale: 0-10 Numeric Is Patient Pain Free? Yes Yes Yes - Nurse 3 - General Ulcer D/C NN Start: 11/13/24 13:19 Freq: Status: Active Protocol: Activity Type Activity Date Activity User E-sign Co-sign Detail Recorded Client Recorded Date Recorded By Document 11/13/24 13:19 KW [id number] 11/13/24 13:21 KW Document 11/18/24 11:31 DL [id number] 11/18/24 11:32 DL Document 11/25/24 09:27 BMF [id number] 11/25/24 09:29 BMF Document 12/02/24 11:27 RB [id number] 12/02/24 11:28 RB 11/13/24 11/18/24 11/25/24 13:19 11:31 09:27 Pain Scale: 0-10 Numeric Is Patient Pain Free? 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 No Wound Care Center Nurse 3 #1 abdomen -Ulcer Cleansing dakins rinse proir vac change -Foul Odor after Cleansing -Negative Pressure Wound Therapy -Pieces of Black Foam Inserted -NPWT Application Charge NPWT </= 50 sq cm ($) -Setting (mmHg) 150 -Negative Pressure is Continuous -Other Dressing Ana-Wound Care Barrier Treatment Response Procedure Tolerated Well WC - Visit Discharge Discharge Condition Stable Ambulatory Status Ambulatory Transportation Private Auto Medication Reconcilliation completed & No provided to patient/care provider Clinical Summary of Care Provided Yes Assessment/Plan Assessment/Plan (1) Surgical wound present: CODE(S): T14.8XXA - Other injury of unspecified body region, initial encounter (2) Acute pain due to trauma: CODE(S): G89.11 - Acute pain due to trauma (3) Obesity: CODE(S): E66.9 - Obesity, unspecified QUALIFIERS: Obesity type: due to excess calories Obesity classification: unspecified obesity classification Serious obesity comorbidity presence: with serious comorbidity Qualified Code(s): E66.09 - Other obesity due to excess calories (4) Nonhealing surgical wound: CODE(S): T81.89XA - Other complications of procedures, not elsewhere classified, initial encounter QUALIFIERS: Encounter type: initial encounter Qualified Code(s): T81.89XA - Other complications of procedures, not elsewhere classified, initial encounter PLAN: Continue the wound VAC at 150 mmHg over the abdomen follow-up in 1 week. If needs to be changed may change during the week otherwise she can leave it on all week if she prefers depending on how much drainage she is getting. Went over her cultures they were all rare and no cocci so that was good. Will call with culture results
--- NOTE | 2024-12-02 14:08 | WC ---
PHOTO-ABD 12/02/24
--- NOTE | 2024-12-08 08:25 | WC ---
WOUND CX'S REVIEWED PER Iggy MARQUEZ NP. N.O. TO START METRONIDAZOLE. ALLERGIES REVIEWED. CALLED PT W/ UPDATE. RX CALLED TO PT'S PREFERRED PHARM[facility]Y, IN [place].
[2024-12-09 10:37] VITALS: BP 146/99; PULSE 108; RESP 18; TEMP 37
--- NOTE | 2024-12-09 12:36 | PCM.WC.PN ---
History of Present Illness Date of Service: 12/09/24 Chief Complaint: Non healing surgical wound History of Wound: Ms. Mendoza is a 28 year old who presents due to non healing abdominal wound. S/p Hernia surgery about 3 months ago and since then, there has been non closure. She was advised to follow-up at [facility] By her primary surgeon at [place] as she developed a postop abscess. Per patient, she states that this was drained and she was treated for a Pseudomonas infection. Has been on 4 courses of ciprofloxacin. Has been packing the area. She reports pain. No known history of diabetes mellitus. History of tobacco abuse. No chills, fever or feeling of unwell reported at this time. Patient had another surgery in [place] and they removed all mesh in her abdomen and now she has an open wound that has to be closed. Had a wound VAC of their own on it but it never worked properly and was removed by her primary care doctor. She states cultures were done and that it was a clean wound. Does have a distinct odor. Progress of Wound: Her measurements this week are very good they are half the size was last week her depth so much better but she is getting terrible irritation around the wound from the drape. So we are going to give her a week vacation off her VAC and just do wet-to-dry. Is a terrible terrible odor coming from the wound that ended up being cocci's. So organ to let her catch up on that with the metronidazole. She complains of tenderness around the wound to and I think it is all the infection. She denies any fevers or chills no nausea or vomiting she has been healing well it is getting smaller but the odor is awful. The rest of the wound looks like it is healing getting much smaller it keeps happening itself in size. Subjective Subjective Patient is okay with taking a week off from the wound VAC and taking her metronidazole. Objective Data Objective Data A lot of dark and necrotic tissue on top and debrided off a lot of dried old skin on top of the wound. Very bad odor coming from the wound. But the measurements are extremely a quarter what they were. Will get the metronidazole started and give her a week off of the wound VAC and do wet-to-dry dressings let her surrounding skin heal and then follow-up in a week. Vital Signs: Vital Signs Temp Pulse Resp BP O2 Del Method 98.6 F 108 H 18 146/99 H Room Air 12/09/24 10:37 12/09/24 10:37 12/09/24 10:37 12/09/24 10:37 11/13/24 13:19 Oxygen Delivery Method Room Air Lab / Micro Data Micro: Microbiology 12/02/24 11:05 Wound - Abdominal Gram Stain - Final 12/02/24 11:05 Wound - Abdominal Wound Culture - Final Proteus mirabilis Staphylococcus aureus Streptococcus pyogenes 12/02/24 11:05 Wound - Abdominal Anaerobic Culture - Final Bacteroides fragilis Anaerobic cocci Physical Exam Const oriented x3 General Appearance: cooperative Exam Limitations: no limitations HEENT normocephalic Eyes General Eye: normal appearance of both eyes Neck full ROM General: normal visual inspection Resp normal respiratory effort Effort and Inspection: able to speak in complete sentences Auscultation: clear to auscultation bilaterally Cardio regular rate and regular rhythm Palpation: normal PMI Rate: regular rate Rhythm: regular rhythm GI Palpation: soft and no hepatosplenomegaly Extremity normal to inspection Skin Skin Narrative: Open wound to abdomen postoperative after removing mesh left open to heal out positive depth down to organs can see her stomach. Neuro oriented x3 Psych Appearance: grossly normal Speech: normal speech Thought Content: normal thought content Judgement: judgement good Debridement Note Debridement Note Wound debrided: Abdominal dehisced wound Type of Debridement: Excisional debridement Anesthesia Used: 5% Lidocaine Gel Depth: to muscle Percentage of wound debrided: 100 Instrument Used: 5mm curette Tissue Removed: Fibrin devitalized tissue Severity: Fat Layer Exposed Amount of bleeding with debridement: Moderate Bleeding Controlled with: Compression and gauze Patient tolerated procedure: Patient tolerated procedure well Post-Debridement Measurements and Additional Note: Post-Debridement Measurements/Treatment WC - Nurse 1 - General Ulcer Assessment Start: 11/13/24 13:19 Freq: Status: Active Protocol: RALPH Activity Type Activity Date Activity User E-sign Co-sign Detail Recorded Client Recorded Date Recorded By Document 11/13/24 13:19 KW [id number] 11/13/24 13:21 KW Document 11/18/24 10:45 DL [id number] 11/18/24 10:55 DL Document 11/25/24 09:02 DL [id number] 11/25/24 09:10 DL Document 12/02/24 10:57 RB [id number] 12/02/24 11:00 RB Document 12/09/24 10:37 DL [id number] 12/09/24 10:44 DL 11/13/24 11/18/24 11/25/24 13:19 10:45 09:02 - Today's Visit Information Type of service Nurse-only Follow-up Visit Follow-up Visit Visit (Physician/[facility] JUMP[facility] (Physician/[employer]ER JUMP[employer]STING ) ) Arrival Mode Ambulatory Ambulatory Transfer Assistance None None Accompanied by mother Patient Identification Verified (Name & Yes Yes Yes ) Patient Requires Transmission-Based No No Precautions Vital Signs Temperature (97.8 F-99.1 F) 97.3 F L 97.8 F 97.8 F Temperature Source Temporal Temporal Temporal Pulse Rate (60-100) 91 102 H 108 H Pulse Location Monitor Monitor Monitor Respiratory Rate (12-18) 16 16 18 Respiratory rate source Observation Observation Observation Oxygen Delivery Method Room Air Blood Pressure (90/60-120/80) 157/109 H 161/113 H 138/94 H Blood Pressure Mean (mm Hg) 125 129 108 Source Monitor Monitor Monitor Position Sitting Blood Pressure Location Left Forearm History Since Last Visit- (Skip if this is Patient's initial visit) Have you changed medications since your No No No last visit? Any new allergies or adverse reactions No No No Had a fall/change in ADL's that may No No No increase risk of falls Signs or symptoms of abuse and/or No No No neglect since last visit Have you been in the hospital since your No No No last visit? Has dressing in place as prescribed Yes Yes Yes Has compression in place as prescribed N/A N/A N/A Has offloadiing in place as prescribed N/A N/A N/A Experienced any changes in pain level or No No No management Left Footwear Regular Shoe Right Footwear Regular Shoe Pain Scale: 0-10 Numeric Is Patient Pain Free? Yes Yes Yes Abd -Description -Intensity -Duration (hours) -Pain Behavior -Pain Aggravating Factors -Alleviating Factors/Interventions -Effectiveness of Alleviating Factor/ Intervention 12/02/24 12/09/24 10:57 10:37 - Today's Visit Information Type of service Follow-up Visit Follow-up Visit (Physician/[facility] (Physician/[employer]ER [facility] ) ) Arrival Mode Ambulatory Ambulatory Transfer Assistance None None Accompanied by Patient Identification Verified (Name & Yes Yes ) Patient Requires Transmission-Based No No Precautions Vital Signs Temperature (97.8 F-99.1 F) 97 F L 98.6 F Temperature Source Temporal Temporal Pulse Rate (60-100) 102 H 108 H Pulse Location Monitor Monitor Respiratory Rate (12-18) 18 18 Respiratory rate source Observation Observation Oxygen Delivery Method Blood Pressure (90/60-120/80) 154/101 H 146/99 H Blood Pressure Mean (mm Hg) 118 114 Source Monitor Monitor Position Semi-Fowlers Blood Pressure Location Left Arm History Since Last Visit- (Skip if this is Patient's initial visit) Have you changed medications since your No No last visit? Any new allergies or adverse reactions No No Had a fall/change in ADL's that may No No increase risk of falls Signs or symptoms of abuse and/or No No neglect since last visit Have you been in the hospital since your No No last visit? Has dressing in place as prescribed Yes Yes Has compression in place as prescribed N/A N/A Has offloadiing in place as prescribed N/A N/A Experienced any changes in pain level or No No management Left Footwear Regular Shoe Right Footwear Regular Shoe Pain Scale: 0-10 Numeric Is Patient Pain Free? Yes Yes Abd -Description Sharp,Throbbing -Intensity 6 -Duration (hours) Acute -Pain Behavior Withdrawal from Touch -Pain Aggravating Factors Exercise/ Activity, Walking -Alleviating Factors/Interventions Medication -Effectiveness of Alleviating Factor/ Moderately Intervention effective WC - Nurse 1 - General Ulcer Measurement Start: 11/13/24 13:19 Freq: Status: Active Protocol: Activity Type Activity Date Activity User E-sign Co-sign Detail Recorded Client Recorded Date Recorded By Document 11/18/24 10:45 DL [id number] 11/18/24 10:55 DL Document 11/25/24 09:02 DL [id number] 11/25/24 09:10 DL Document 12/02/24 10:57 RB [id number] 12/02/24 11:00 RB Document 12/09/24 10:37 DL [id number] 12/09/24 10:44 DL 11/18/24 11/25/24 12/02/24 10:45 09:02 10:57 Wound Center Nurse 1 #1 abdomen -Combined with other wound No -Current Size (cm) - Length 9.5 8 6.5 -Current Size (cm) - Width 3.8 3.3 2.8 -Current Size (cm) - Depth 3 3.1 1 -Total Square Cm 36.10 26.4 18.20 -Photo Taken Yes Yes Yes -Tunneling No -Undermining/Tunneling No -Circular Undermining No -Exudate Amt Medium Large Large -Exudate Type Serosanguineous Serosanguineous Serosanguineous -Wound Margin Distinct, Distinct, Distinct, Outline Outline Outline Attached Attached Attached -Granulation Amt Large (67-100%) Medium (34-66%) Large (67-100%) -Granulation Quality [place],Red -Slough/Fibrin Yes -Necrosis Amt Small (1-33%) Medium (34-66%) Medium (34-66%) -Necrotic Tissue Type Adherent Slough Adherent Slough Adherent Slough -Structure Exposed N/A N/A N/A -Texture (Ana-wound Skin Appearance) Scarring Excoriation, Assessed, Scarring,Rash Excoriation, Scarring -Moisture (Ana-wound Skin Appearance) No Abnormality No Abnormality Assessed -Color (Ana-wound Skin Appearance) No Abnormality No Abnormality Assessed -Temperature (Ana-wound Skin No Abnormality No Abnormality No Abnormality Appearance) (Pt Warm) (Pt Warm) (Pt Warm) -Tenderness on Palpation (Ana-wound No No No Skin Appearance) -Ulcer Cleansing Soap and Water Soap and Water Wound Cleanser -Foul Odor after Cleansing No No No -Anesthetic Used 4% Lidocaine 5% Lidocaine 4% Lidocaine Solution Gel Solution 12/09/24 10:37 Wound Center Nurse 1 #1 abdomen -Combined with other wound -Current Size (cm) - Length 3.6 -Current Size (cm) - Width 0.7 -Current Size (cm) - Depth 1.3 -Total Square Cm 2.52 -Photo Taken Yes -Tunneling -Undermining/Tunneling -Circular Undermining -Exudate Amt Large -Exudate Type Serosanguineous -Wound Margin Distinct, Outline Attached -Granulation Amt Large (67-100%) -Granulation Quality [place] -Slough/Fibrin -Necrosis Amt Small (1-33%) -Necrotic Tissue Type Adherent Slough -Structure Exposed N/A -Texture (Ana-wound Skin Appearance) Excoriation, Scarring -Moisture (Ana-wound Skin Appearance) Maceration, Weeping -Color (Ana-wound Skin Appearance) No Abnormality -Temperature (Ana-wound Skin No Abnormality Appearance) (Pt Warm) -Tenderness on Palpation (Ana-wound No Skin Appearance) -Ulcer Cleansing Soap and Water -Foul Odor after Cleansing Yes -Anesthetic Used 5% Lidocaine Gel WC - Nurse 2 - General Ulcer CM Notes Start: 11/13/24 13:19 Freq: Status: Active Protocol: Activity Type Activity Date Activity User E-sign Co-sign Detail Recorded Client Recorded Date Recorded By Document 11/18/24 11:06 DS [id number] 11/18/24 11:09 DS Document 11/25/24 09:18 BMF [id number] 11/25/24 09:22 BMF Document 12/02/24 11:04 BMF [id number] 12/02/24 11:12 BMF Document 12/09/24 10:56 BMF [id number] 12/09/24 11:01 BMF 11/18/24 11/25/24 12/02/24 11:06 09:18 11:04 Wound Center Nurse 2 #1 abdomen -Time 11:06 09:18 11:04 -Correct Patient Yes Yes Yes -Correct Side, Site, Position Yes Yes Yes -Correct Procedure Yes Yes Yes -Procedure Performed Yes Yes Yes -Type of Procedure Debridement Debridement Debridement -Clinical Debridement Muscle / Fascia Muscle / Fascia Muscle / Fascia -Tissue Removed Muscle,Fascia Muscle,Fascia Muscle,Fascia -Post Debridement (cm) - Length 9.5 8.4 6.5 -Post Debridement (cm) - Width 4.0 3.5 2.8 -Post Debridement (cm) - Depth 3.2 2.5 2.1 -Total Square (Post) (cm) 38.00 29.40 18.20 -Area of Debridement (cm) - Length 9.5 8.4 6.5 -Area of Debridement (cm) - Width 4.0 3.5 2.8 -Total Square (Area) (cm) 38.00 29.40 18.20 -Tunneling No No -Undermining/Tunneling No No -Circular Undermining No No -Wound/Ulcer Outcome Not Healed Not Healed Not Healed -Ulcer Cleansing Rinsed/ Rinsed/ Rinsed/ Irrigated with Irrigated with Irrigated with Saline Saline Saline -Foul Odor after Cleansing No No No -Bioengineered Tissue No No No -Bleeding Controlled with Pressure Pressure Pressure -Treatment Response Procedure Procedure Procedure Tolerated Well Tolerated Well Tolerated Well -Debridement - Muscle / Fascia, 1st Yes Yes Yes 20sq cm -Debridement, Muscle/Fascia, ea addt'l 1 1 20sq cm or part thereof Pain Scale: 0-10 Numeric Is Patient Pain Free? Yes Yes Yes 12/09/24 10:56 Wound Center Nurse 2 #1 abdomen -Time 10:56 -Correct Patient Yes -Correct Side, Site, Position Yes -Correct Procedure Yes -Procedure Performed Yes -Type of Procedure Debridement -Clinical Debridement Muscle / Fascia -Tissue Removed Muscle,Fascia -Post Debridement (cm) - Length 5 -Post Debridement (cm) - Width 3 -Post Debridement (cm) - Depth 1.4 -Total Square (Post) (cm) 15 -Area of Debridement (cm) - Length 5 -Area of Debridement (cm) - Width 3 -Total Square (Area) (cm) 15 -Tunneling No -Undermining/Tunneling No -Circular Undermining No -Wound/Ulcer Outcome Not Healed -Ulcer Cleansing Rinsed/ Irrigated with Saline -Foul Odor after Cleansing No -Bioengineered Tissue No -Bleeding Controlled with Pressure -Treatment Response Procedure Tolerated Well -Debridement - Muscle / Fascia, 1st Yes 20sq cm -Debridement, Muscle/Fascia, ea addt'l 20sq cm or part thereof Pain Scale: 0-10 Numeric Is Patient Pain Free? Yes WC - Nurse 3 - General Ulcer D/C NN Start: 11/13/24 13:19 Freq: Status: Active Protocol: Activity Type Activity Date Activity User E-sign Co-sign Detail Recorded Client Recorded Date Recorded By Document 11/13/24 13:19 KW [id number] 11/13/24 13:21 KW Document 11/18/24 11:31 DL [id number] 11/18/24 11:32 DL Document 11/25/24 09:27 BMF [id number] 11/25/24 09:29 BMF Document 12/02/24 11:27 RB [id number] 12/02/24 11:28 RB Edit Result 12/02/24 11:27 RB (1) [id number] 12/03/24 12:11 BMF Document 12/09/24 11:14 DL [id number] 12/09/24 11:16 DL (1) #1 abdomen - NPWT Application Charge NPWT </= 50 sq cm => NPWT & Debridement ($) => (nc) 11/13/24 11/18/24 11/25/24 13:19 11:31 09:27 Pain Scale: 0-10 Numeric Is Patient Pain Free? Yes Yes Yes Wound Care Center Nurse 3 #1 abdomen -Ulcer Cleansing Soap and Water Soap and Water Rinsed/ Irrigated with Saline -Foul Odor after Cleansing No No -Negative Pressure Wound Therapy Start Continue Continue -Pieces of Black Foam Inserted 1 1 -NPWT Application Charge NPWT > 50 sq cm NPWT & NPWT & ($) Debridement (nc Debridement (nc ) ) -Setting (mmHg) 150 150 -Negative Pressure is Continuous Continuous Continuous -Other Dressing vac applied per dl batch operator -Primary Dressing Covered/Secured with -Other Covering -Wound Comment(s) Ana-Wound Care Treatment Response Procedure Tolerated Well WC - Visit Discharge Discharge Condition Stable Stable Stable Ambulatory Status Ambulatory Ambulatory Ambulatory Transportation Private Auto Private Auto Private Auto Medication Reconcilliation completed & No provided to patient/care provider Clinical Summary of Care Provided Yes 12/02/24 12/09/24 11:27 11:14 Pain Scale: 0-10 Numeric Is Patient Pain Free? No Yes Wound Care Center Nurse 3 #1 abdomen -Ulcer Cleansing dakins rinse Soap and Water proir vac change -Foul Odor after Cleansing No -Negative Pressure Wound Therapy -Pieces of Black Foam Inserted -NPWT Application Charge NPWT & Debridement (nc ) -Setting (mmHg) 150 -Negative Pressure is Continuous -Other Dressing Dakins -Primary Dressing Covered/Secured with Dry Gauze, Secured with Tape -Other Covering ABD -Wound Comment(s) Vac on Hold for next week. Ana-Wound Care Barrier Treatment Response Procedure Procedure Tolerated Well Tolerated Well WC - Visit Discharge Discharge Condition Stable Stable Ambulatory Status Ambulatory Ambulatory Transportation Private Auto Private Auto Medication Reconcilliation completed & No provided to patient/care provider Clinical Summary of Care Provided Yes Assessment/Plan Assessment/Plan (1) Surgical wound present: CODE(S): T14.8XXA - Other injury of unspecified body region, initial encounter (2) Acute pain due to trauma: CODE(S): G89.11 - Acute pain due to trauma (3) Obesity: CODE(S): E66.9 - Obesity, unspecified QUALIFIERS: Obesity type: due to excess calories Obesity classification: unspecified obesity classification Serious obesity comorbidity presence: with serious comorbidity Qualified Code(s): E66.09 - Other obesity due to excess calories (4) Nonhealing surgical wound: CODE(S): T81.89XA - Other complications of procedures, not elsewhere classified, initial encounter QUALIFIERS: Encounter type: initial encounter Qualified Code(s): T81.89XA - Other complications of procedures, not elsewhere classified, initial encounter PLAN: Taking a wound VAC vacation for 1 week Patient is to continue taking her metronidazole 3 times a day Patient will start a wet-to-dry with gauze soaked in Dakin's to wound cover with ABD every day and follow-up in 1 week
--- NOTE | 2024-12-09 13:41 | WC ---
PHOTO-ABD 12/09/24
== END 2024-12-13 23:59 | disposition home or self-care (01) ==
LOC: WC 10:30
PROVIDERS: PCP Nurse Practitioner Family; Visit Provider Nurse Practitioner
DX: T81.89XA Other complications of procedures, not elsewhere classified, initial encounter (principal); Z87.891 Personal history of nicotine dependence; G89.11 Acute pain due to trauma; E66.09 Other obesity due to excess calories
CPT/HCPCS: 97605; 11043; 11046; 87070; 87075; 87077; 87186; 87205; 97606

== ENCOUNTER 2025-01-06 11:00 | Outpatient (RCR) | payer MEDICAID, SELFPAY ==
[2024-12-16 11:06] VITALS: BP 152/97; PULSE 111; RESP 18; TEMP 36
--- NOTE | 2024-12-16 11:25 | PCM.WC.PN ---
History of Present Illness Date of Service: 12/16/24 Chief Complaint: Non healing surgical wound History of Wound: Ms. Mendoza is a 28 year old who presents due to non healing abdominal wound. S/p Hernia surgery about 3 months ago and since then, there has been non closure. She was advised to follow-up at [facility] By her primary surgeon at [place] as she developed a postop abscess. Per patient, she states that this was drained and she was treated for a Pseudomonas infection. Has been on 4 courses of ciprofloxacin. Has been packing the area. She reports pain. No known history of diabetes mellitus. History of tobacco abuse. No chills, fever or feeling of unwell reported at this time. Patient had another surgery in [place] and they removed all mesh in her abdomen and now she has an open wound that has to be closed. Had a wound VAC of their own on it but it never worked properly and was removed by her primary care doctor. She states cultures were done and that it was a clean wound. Does have a distinct odor. Progress of Wound: Cultures were positive for many cocci, patient is on metronidazole and will finish next week. Patient has been on a VAC holiday and looks like that she does not need to go back on the wound VAC it is much smaller about half the size of what it was and we will stop using the wet-to-dry also and change her over to fibber call with Dakin's on top. Slight odor still can smell but much much better than what it was last week. Patient is very happy with outcome so far Subjective Subjective Patient states she has never healed this quickly and has been over a year since she has had the wound. Objective Data Objective Data No sign of infection skin is healing well she still has some skin irritations but improving. We will switch her up from the wet-to-dry to the Fibracol soaked with Dakin's and have her close with that measurements are extremely a quarter what they were last week. The small area that was extremely deep is filled and and everything looks good we will discontinue the VAC at this time. Patient is to continue using her metronidazole till done. Vital Signs: Vital Signs Temp Pulse Resp BP 96.8 F L 111 H 18 152/97 H 12/16/24 11:06 12/16/24 11:06 12/16/24 11:06 12/16/24 11:06 Lab / Micro Data Attestation: I reviewed the patient's lab results. Physical Exam Const oriented x3 General Appearance: cooperative Exam Limitations: no limitations HEENT normocephalic Eyes General Eye: normal appearance of both eyes Neck full ROM General: normal visual inspection Resp normal respiratory effort Effort and Inspection: able to speak in complete sentences Auscultation: clear to auscultation bilaterally Cardio regular rate and regular rhythm Palpation: normal PMI Rate: regular rate Rhythm: regular rhythm GI Palpation: soft and no hepatosplenomegaly Extremity normal to inspection Skin Skin Narrative: Open wound to abdomen postoperative after removing mesh left open to heal out positive depth down to organs can see her stomach. Neuro oriented x3 Psych Appearance: grossly normal Speech: normal speech Thought Content: normal thought content Judgement: judgement good Debridement Note Debridement Note Wound debrided: Abdominal dehisced wound Type of Debridement: Excisional debridement Anesthesia Used: 5% Lidocaine Gel Depth: to muscle Percentage of wound debrided: 100 Instrument Used: 5mm curette Tissue Removed: Fibrin devitalized tissue Severity: Fat Layer Exposed Amount of bleeding with debridement: Moderate Bleeding Controlled with: Compression and gauze Patient tolerated procedure: Patient tolerated procedure well Post-Debridement Measurements and Additional Note: Post-Debridement Measurements/Treatment - Nurse 1 - General Ulcer Assessment Start: 12/16/24 11:06 Freq: Status: Active Protocol: RALPH Activity Type Activity Date Activity User E-sign Co-sign Detail Recorded Client Recorded Date Recorded By Document 12/16/24 11:06 ARTURO [id number] 12/16/24 11:07 ARTURO 12/16/24 11:06 - Today's Visit Information Type of service Follow-up Visit (Physician/DATA ENTRY OPERATOR ) Arrival Mode Ambulatory Transfer Assistance None Patient Identification Verified (Name & Yes ) Patient Requires Transmission-Based No Precautions Vital Signs Temperature (97.8 F-99.1 F) 96.8 F L Temperature Source Temporal Pulse Rate (60-100) 111 H Pulse Location Monitor Respiratory Rate (12-18) 18 Respiratory rate source Observation Blood Pressure (90/60-120/80) 152/97 H Blood Pressure Mean (mm Hg) 115 Source Monitor Position Semi-Fowlers Blood Pressure Location Left Arm History Since Last Visit- (Skip if this is Patient's initial visit) Have you changed medications since your No last visit? Any new allergies or adverse reactions No Had a fall/change in ADL's that may No increase risk of falls Signs or symptoms of abuse and/or No neglect since last visit Have you been in the hospital since your No last visit? Has dressing in place as prescribed Yes Has compression in place as prescribed N/A Has offloadiing in place as prescribed N/A Experienced any changes in pain level or No management Pain Scale: 0-10 Numeric Is Patient Pain Free? Yes - Nurse 1 - General Ulcer Measurement Start: 12/16/24 11:06 Freq: Status: Active Protocol: Activity Type Activity Date Activity User E-sign Co-sign Detail Recorded Client Recorded Date Recorded By Document 12/16/24 11:06 [id number] 12/16/24 11:07 12/16/24 11:06 Wound Center Nurse 1 #1 abdomen -Combined with other wound No -Current Size (cm) - Length 3.4 -Current Size (cm) - Width 1.5 -Current Size (cm) - Depth 0.8 -Total Square Cm 5.10 -Photo Taken Yes -Tunneling No -Undermining/Tunneling No -Circular Undermining No -Exudate Amt Large -Exudate Type Serosanguineous -Wound Margin Distinct, Outline Attached -Granulation Amt Medium (34-66%) -Granulation Quality [place] -Slough/Fibrin Yes -Necrosis Amt Medium (34-66%) -Necrotic Tissue Type Adherent Slough -Structure Exposed N/A -Texture (Ana-wound Skin Appearance) Assessed, Excoriation, Scarring -Moisture (Ana-wound Skin Appearance) Assessed -Color (Ana-wound Skin Appearance) Assessed -Temperature (Ana-wound Skin No Abnormality Appearance) (Pt Warm) -Tenderness on Palpation (Ana-wound No Skin Appearance) -Ulcer Cleansing Wound Cleanser -Foul Odor after Cleansing No -Anesthetic Used 5% Lidocaine Gel - Nurse 2 - General Ulcer CM Notes Start: 12/16/24 11:06 Freq: Status: Active Protocol: Activity Type Activity Date Activity User E-sign Co-sign Detail Recorded Client Recorded Date Recorded By Document 12/16/24 11:12 [facility] [id number] 12/16/24 11:15 [facility] 12/16/24 11:12 Wound Center Nurse 2 -Time 11:12 -Correct Patient Yes -Correct Side, Site, Position Yes -Correct Procedure Yes -Procedure Performed Yes -Type of Procedure Debridement -Clinical Debridement Subcutaneous -Tissue Removed Subcutaneous -Post Debridement (cm) - Length 4 -Post Debridement (cm) - Width 1 -Post Debridement (cm) - Depth 0.1 -Total Square (Post) (cm) 4 -Area of Debridement (cm) - Length 4 -Area of Debridement (cm) - Width 1 -Total Square (Area) (cm) 4 -Tunneling No -Undermining/Tunneling No -Circular Undermining No -Wound/Ulcer Outcome Not Healed -Ulcer Cleansing Rinsed/ Irrigated with Saline -Foul Odor after Cleansing No -Bioengineered Tissue No -Bleeding Controlled with Pressure -Treatment Response Procedure Tolerated Well -Debridement - Subq, 1st 20sq cm Yes Pain Scale: 0-10 Numeric Is Patient Pain Free? Yes - Nurse 3 - General Ulcer D/C NN Start: 12/16/24 11:06 Freq: Status: Active Protocol: Activity Type Activity Date Activity User E-sign Co-sign Detail Recorded Client Recorded Date Recorded By Document 12/16/24 11:19 [id number] 12/16/24 11:21 12/16/24 11:19 Wound Care Center Nurse 3 #1 abdomen -Ulcer Cleansing Rinsed/ Irrigated with Saline -Primary Dressing Applied Fibracol Plus 4x4 -Other Dressing abd -Primary Dressing Covered/Secured with Secured with Tape -Fibracol Plus 4x4 1 Treatment Response Procedure Tolerated Well Pain Scale: 0-10 Numeric Is Patient Pain Free? Yes - Visit Discharge Discharge Condition Stable Ambulatory Status Ambulatory Transportation Private Auto Medication Reconcilliation completed & No provided to patient/care provider Clinical Summary of Care Provided Yes Assessment/Plan Assessment/Plan (1) Surgical wound present: CODE(S): T14.8XXA - Other injury of unspecified body region, initial encounter (2) Acute pain due to trauma: CODE(S): G89.11 - Acute pain due to trauma (3) Obesity: CODE(S): E66.9 - Obesity, unspecified QUALIFIERS: Obesity type: due to excess calories Obesity classification: unspecified obesity classification Serious obesity comorbidity presence: with serious comorbidity Qualified Code(s): E66.09 - Other obesity due to excess calories (4) Nonhealing surgical wound: CODE(S): T81.89XA - Other complications of procedures, not elsewhere classified, initial encounter QUALIFIERS: Encounter type: initial encounter Qualified Code(s): T81.89XA - Other complications of procedures, not elsewhere classified, initial encounter PLAN: Discontinue wound VAC Patient is to continue taking her metronidazole 3 times a day Stop wet-to-dry and apply Fibracol soaked in Dakin's to wound base cover with ABD pad and follow-up in 1 week
--- NOTE | 2024-12-17 09:57 | WC ---
PHOTO- ABDOMEN 12/16/24
[2024-12-23 10:48] VITALS: BP 124/91; PULSE 70; RESP 16; TEMP 36.7
--- NOTE | 2024-12-23 12:12 | PN.PCM_ITS ---
History of Present Illness Date of Service: 12/23/24 Chief Complaint: Non healing surgical wound History of Wound: Ms. Mendoza is a 28 year old who presents due to non healing abdominal wound. S/p Hernia surgery about 3 months ago and since then, there has been non closure. She was advised to follow-up at [facility] By her primary surgeon at [place] as she developed a postop abscess. Per patient, she states that this was drained and she was treated for a Pseudomonas infection. Has been on 4 courses of ciprofloxacin. Has been packing the area. She reports pain. No known history of diabetes mellitus. History of tobacco abuse. No chills, fever or feeling of unwell reported at this time. Patient had another surgery in [place] and they removed all mesh in her abdomen and now she has an open wound that has to be closed. Had a wound VAC of their own on it but it never worked properly and was removed by her primary care doctor. She states cultures were done and that it was a clean wound. Does have a distinct odor. Progress of Wound: Cultures were positive for many cocci, patient has now finished her metronidazole . We have discontinued the wound VAC and she has to send it back. We have been doing wet-to-dry Fibracol with Dakin's with a dressing over top. But now I think she could move onto Promogran and a bordered dressing over top to finish it off and the finally get new skin on top. She is filled in nicely she is pretty flat now on her belly. No odor noted she is doing well looks very clean the wound. Objective Data Objective Data Vital Signs: Vital Signs Temp Pulse Resp BP 98.1 F 70 16 124/91 H 12/23/24 10:48 12/23/24 10:48 12/23/24 10:48 12/23/24 10:48 Debridement Note Debridement Note Post-Debridement Measurements and Additional Note: Post-Debridement Measurements/Treatment ELADIO - Nurse 1 - General Ulcer Assessment Start: 12/16/24 11:06 Freq: Status: Active Protocol: RALPH Activity Type Activity Date Activity User E-sign Co-sign Detail Recorded Client Recorded Date Recorded By Document 12/16/24 11:06 RB [id number] 12/16/24 11:07 RB Document 12/23/24 10:48 DL [id number] 12/23/24 10:53 DL 12/16/24 12/23/24 11:06 10:48 - Today's Visit Information Type of service Follow-up Visit Follow-up Visit (Physician/COLLECT ON DELIVERY CLERK (Physician/COLLECT ON DELIVERY CLERK ) ) Arrival Mode Ambulatory Ambulatory Transfer Assistance None None Patient Identification Verified (Name & Yes Yes ) Patient Requires Transmission-Based No No Precautions Vital Signs Temperature (97.8 F-99.1 F) 96.8 F L 98.1 F Temperature Source Temporal Temporal Pulse Rate (60-100) 111 H 70 Pulse Location Monitor Monitor Respiratory Rate (12-18) 18 16 Respiratory rate source Observation Blood Pressure (90/60-120/80) 152/97 H 124/91 H Blood Pressure Mean (mm Hg) 115 102 Source Monitor Monitor Position Semi-Fowlers Blood Pressure Location Left Arm History Since Last Visit- (Skip if this is Patient's initial visit) Have you changed medications since your No No last visit? Any new allergies or adverse reactions No No Had a fall/change in ADL's that may No No increase risk of falls Signs or symptoms of abuse and/or No No neglect since last visit Have you been in the hospital since your No No last visit? Has dressing in place as prescribed Yes Yes Has compression in place as prescribed N/A N/A Has offloadiing in place as prescribed N/A Yes Experienced any changes in pain level or No No management Pain Scale: 0-10 Numeric Is Patient Pain Free? Yes Yes - Nurse 1 - General Ulcer Measurement Start: 12/16/24 11:06 Freq: Status: Active Protocol: Activity Type Activity Date Activity User E-sign Co-sign Detail Recorded Client Recorded Date Recorded By Document 12/16/24 11:06 RB [id number] 12/16/24 11:07 RB Document 12/23/24 10:48 DL [id number] 12/23/24 10:53 DL 12/16/24 12/23/24 11:06 10:48 Wound Center Nurse 1 #1 abdomen -Combined with other wound No -Current Size (cm) - Length 3.4 4.2 -Current Size (cm) - Width 1.5 1.3 -Current Size (cm) - Depth 0.8 0.1 -Total Square Cm 5.10 5.46 -Photo Taken Yes -Tunneling No -Undermining/Tunneling No -Circular Undermining No -Exudate Amt Large Medium -Exudate Type Serosanguineous Serosanguineous -Wound Margin Distinct, Distinct, Outline Outline Attached Attached -Granulation Amt Medium (34-66%) Small (1-33%) -Granulation Quality [place] -Slough/Fibrin Yes -Necrosis Amt Medium (34-66%) Large (67-100%) -Necrotic Tissue Type Adherent Slough Adherent Slough -Structure Exposed N/A N/A -Texture (Ana-wound Skin Appearance) Assessed, Scarring,Rash Excoriation, Scarring -Moisture (Ana-wound Skin Appearance) Assessed No Abnormality -Color (Ana-wound Skin Appearance) Assessed No Abnormality -Temperature (Ana-wound Skin No Abnormality No Abnormality Appearance) (Pt Warm) (Pt Warm) -Tenderness on Palpation (Ana-wound No Skin Appearance) -Ulcer Cleansing Wound Cleanser Soap and Water -Foul Odor after Cleansing No No -Anesthetic Used 5% Lidocaine 5% Lidocaine Gel Gel WC - Nurse 2 - General Ulcer CM Notes Start: 12/16/24 11:06 Freq: Status: Active Protocol: Activity Type Activity Date Activity User E-sign Co-sign Detail Recorded Client Recorded Date Recorded By Document 12/16/24 11:12 [facility] [id number] 12/16/24 11:15 [facility] Document 12/23/24 11:10 [facility] [id number] 12/23/24 11:14 [facility] 12/16/24 12/23/24 11:12 11:10 Wound Center Nurse 2 #1 abdomen -Time 11:12 11:10 -Correct Patient Yes Yes -Correct Side, Site, Position Yes Yes -Correct Procedure Yes Yes -Procedure Performed Yes Yes -Type of Procedure Debridement Debridement -Clinical Debridement Subcutaneous Subcutaneous -Tissue Removed Subcutaneous Subcutaneous -Post Debridement (cm) - Length 4 4.8 -Post Debridement (cm) - Width 1 1.5 -Post Debridement (cm) - Depth 0.1 0.2 -Total Square (Post) (cm) 4 7.20 -Area of Debridement (cm) - Length 4 4.8 -Area of Debridement (cm) - Width 1 1.5 -Total Square (Area) (cm) 4 7.20 -Tunneling No No -Undermining/Tunneling No No -Circular Undermining No No -Wound/Ulcer Outcome Not Healed Not Healed -Ulcer Cleansing Rinsed/ Rinsed/ Irrigated with Irrigated with Saline Saline -Foul Odor after Cleansing No No -Bioengineered Tissue No No -Bleeding Controlled with Pressure Pressure -Treatment Response Procedure Procedure Tolerated Well Tolerated Well -Debridement - Subq, 1st 20sq cm Yes Yes Pain Scale: 0-10 Numeric Is Patient Pain Free? Yes Yes - Nurse 3 - General Ulcer D/C NN Start: 12/16/24 11:06 Freq: Status: Active Protocol: Activity Type Activity Date Activity User E-sign Co-sign Detail Recorded Client Recorded Date Recorded By Document 12/16/24 11:19 RB [id number] 12/16/24 11:21 RB Edit Result 12/16/24 11:19 RB (1) [id number] 12/16/24 11:25 RB Document 12/23/24 11:28 BMF [id number] 12/23/24 11:29 BMF (1) #1 abdomen - Fibracol Plus 4x4 1 => 2 12/16/24 12/23/24 11:19 11:28 Wound Care Center Nurse 3 #1 abdomen -Ulcer Cleansing Rinsed/ Rinsed/ Irrigated with Irrigated with Saline Saline -Foul Odor after Cleansing No -Primary Dressing Applied Fibracol Plus Promogran, 4x4 Silicone Border Foam 6x6 -Other Dressing abd -Primary Dressing Covered/Secured with Secured with Tape -Fibracol Plus 4x4 2 -Promogran 2 -Silicone Border Foam 6x6 1 Treatment Response Procedure Procedure Tolerated Well Tolerated Well Pain Scale: 0-10 Numeric Is Patient Pain Free? Yes Yes - Visit Discharge Discharge Condition Stable Stable Ambulatory Status Ambulatory Ambulatory Transportation Private Auto Private Auto Medication Reconcilliation completed & No provided to patient/care provider Clinical Summary of Care Provided Yes
[2024-12-30 11:10] VITALS: BP 136/91; PULSE 77; RESP 16; TEMP 36.2
--- NOTE | 2024-12-30 13:34 | PCM.WC.PN ---
History of Present Illness Date of Service: 12/30/24 Chief Complaint: Non healing surgical wound History of Wound: Ms. Mendoza is a 28 year old who presents due to non healing abdominal wound. S/p Hernia surgery about 3 months ago and since then, there has been non closure. She was advised to follow-up at [facility] [place] By her primary surgeon at [place] as she developed a postop abscess. Per patient, she states that this was drained and she was treated for a Pseudomonas infection. Has been on 4 courses of ciprofloxacin. Has been packing the area. She reports pain. No known history of diabetes mellitus. History of tobacco abuse. No chills, fever or feeling of unwell reported at this time. Patient had another surgery in [place] and they removed all mesh in her abdomen and now she has an open wound that has to be closed. Had a wound VAC of their own on it but it never worked properly and was removed by her primary care doctor. She states cultures were done and that it was a clean wound. Does have a distinct odor. Progress of Wound: Cultures were positive for many cocci, patient has now finished her metronidazole . We have discontinued the wound VAC and she has to send it back. We have been doing wet-to-dry Fibracol with Dakin's with a dressing over top. But now I think she could move onto Promogran and a bordered dressing over top to finish it off and the finally get new skin on top. She is filled in nicely she is pretty flat now on her belly. No odor noted she is doing well looks very clean the wound. The wound today is utterly beautiful it is flatter smaller looks great she is so pleased she brought her along with her. We will continue using the Promogran and follow her up in 1 week Subjective Subjective and are so grateful and it has been over a year that she has had this wound that is healing almost totally closed now. Objective Data Objective Data No sign of infection no odor noted tolerated all the medications well is using the Promogran moistened with a absorbent dressing over top and that is enough and it seems to be working we will continue and follow-up in 1 week I told her she only has about a week or 2 left. Vital Signs: Vital Signs Temp Pulse Resp BP 97.2 F L 77 16 136/91 H 12/30/24 11:10 12/30/24 11:10 12/30/24 11:10 12/30/24 11:10 Lab / Micro Data Attestation: I reviewed the patient's lab results. Physical Exam Const oriented x3 General Appearance: cooperative Exam Limitations: no limitations HEENT normocephalic Eyes General Eye: normal appearance of both eyes Neck full ROM General: normal visual inspection Resp normal respiratory effort Effort and Inspection: able to speak in complete sentences Auscultation: clear to auscultation bilaterally Cardio regular rate and regular rhythm Palpation: normal PMI Rate: regular rate Rhythm: regular rhythm GI Palpation: soft and no hepatosplenomegaly Extremity normal to inspection Skin Skin Narrative: Open wound to abdomen postoperative after removing mesh left open to heal out positive depth down to organs can see her stomach. Neuro oriented x3 Psych Appearance: grossly normal Speech: normal speech Thought Content: normal thought content Judgement: judgement good Debridement Note Debridement Note Wound debrided: Abdominal dehisced wound Type of Debridement: Excisional debridement Anesthesia Used: 5% Lidocaine Gel Depth: to muscle Percentage of wound debrided: 100 Instrument Used: 5mm curette Tissue Removed: Fibrin Severity: Fat Layer Exposed Amount of bleeding with debridement: Moderate Bleeding Controlled with: Compression and gauze Patient tolerated procedure: Patient tolerated procedure well Post-Debridement Measurements and Additional Note: Post-Debridement Measurements/Treatment - Nurse 1 - General Ulcer Assessment Start: 12/16/24 11:06 Freq: Status: Active Protocol: ELADIO.FLEX Activity Type Activity Date Activity User E-sign Co-sign Detail Recorded Client Recorded Date Recorded By Document 12/16/24 11:06 RB [id number] 12/16/24 11:07 RB Document 12/23/24 10:48 DL [id number] 12/23/24 10:53 DL Document 12/30/24 11:10 DL [id number] 12/30/24 11:17 DL 12/16/24 12/23/24 12/30/24 11:06 10:48 11:10 - Today's Visit Information Type of service Follow-up Visit Follow-up Visit Follow-up Visit (Physician/SHIPPING ASSISTANT (Physician/SHIPPING ASSISTANT (Physician/SHIPPING ASSISTANT ) ) ) Arrival Mode Ambulatory Ambulatory Ambulatory Transfer Assistance None None None Patient Identification Verified (Name & Yes Yes Yes ) Patient Requires Transmission-Based No No No Precautions Vital Signs Temperature (97.8 F-99.1 F) 96.8 F L 98.1 F 97.2 F L Temperature Source Temporal Temporal Temporal Pulse Rate (60-100) 111 H 70 77 Pulse Location Monitor Monitor Monitor Respiratory Rate (12-18) 18 16 16 Respiratory rate source Observation Observation Blood Pressure (90/60-120/80) 152/97 H 124/91 H 136/91 H Blood Pressure Mean (mm Hg) 115 102 106 Source Monitor Monitor Monitor Position Semi-Fowlers Blood Pressure Location Left Arm History Since Last Visit- (Skip if this is Patient's initial visit) Have you changed medications since your No No No last visit? Any new allergies or adverse reactions No No No Had a fall/change in ADL's that may No No No increase risk of falls Signs or symptoms of abuse and/or No No No neglect since last visit Have you been in the hospital since your No No No last visit? Has dressing in place as prescribed Yes Yes Yes Has compression in place as prescribed N/A N/A N/A Has offloadiing in place as prescribed N/A Yes N/A Experienced any changes in pain level or No No No management Pain Scale: 0-10 Numeric Is Patient Pain Free? Yes Yes Yes WC - Nurse 1 - General Ulcer Measurement Start: 12/16/24 11:06 Freq: Status: Active Protocol: Activity Type Activity Date Activity User E-sign Co-sign Detail Recorded Client Recorded Date Recorded By Document 12/16/24 11:06 RB [id number] 12/16/24 11:07 RB Document 12/23/24 10:48 DL [id number] 12/23/24 10:53 DL Document 12/30/24 11:10 DL [id number] 12/30/24 11:17 DL 12/16/24 12/23/24 12/30/24 11:06 10:48 11:10 Wound Center Nurse 1 #1 abdomen -Combined with other wound No -Current Size (cm) - Length 3.4 4.2 3.7 -Current Size (cm) - Width 1.5 1.3 0.7 -Current Size (cm) - Depth 0.8 0.1 0.1 -Total Square Cm 5.10 5.46 2.59 -Photo Taken Yes -Tunneling No -Undermining/Tunneling No -Circular Undermining No -Exudate Amt Large Medium Small -Exudate Type Serosanguineous Serosanguineous Serosanguineous -Wound Margin Distinct, Distinct, Distinct, Outline Outline Outline Attached Attached Attached -Granulation Amt Medium (34-66%) Small (1-33%) Large (67-100%) -Granulation Quality [place] -Slough/Fibrin Yes -Necrosis Amt Medium (34-66%) Large (67-100%) Small (1-33%) -Necrotic Tissue Type Adherent Slough Adherent Slough Adherent Slough -Structure Exposed N/A N/A N/A -Texture (Ana-wound Skin Appearance) Assessed, Scarring,Rash Scarring Excoriation, Scarring -Moisture (Ana-wound Skin Appearance) Assessed No Abnormality No Abnormality -Color (Ana-wound Skin Appearance) Assessed No Abnormality No Abnormality -Temperature (Ana-wound Skin No Abnormality No Abnormality No Abnormality Appearance) (Pt Warm) (Pt Warm) (Pt Warm) -Tenderness on Palpation (Ana-wound No No Skin Appearance) -Ulcer Cleansing Wound Cleanser Soap and Water Soap and Water -Foul Odor after Cleansing No No No -Anesthetic Used 5% Lidocaine 5% Lidocaine 5% Lidocaine Gel Gel Gel WC - Nurse 2 - General Ulcer CM Notes Start: 12/16/24 11:06 Freq: Status: Active Protocol: Activity Type Activity Date Activity User E-sign Co-sign Detail Recorded Client Recorded Date Recorded By Document 12/16/24 11:12 [facility] [id number] 12/16/24 11:15 [facility] Document 12/23/24 11:10 [facility] [id number] 12/23/24 11:14 [facility] Document 12/30/24 11:23 [facility] [id number] 12/30/24 11:25 [facility] 12/16/24 12/23/24 12/30/24 11:12 11:10 11:23 Wound Center Nurse 2 #1 abdomen -Time 11:12 11:10 11:23 -Correct Patient Yes Yes Yes -Correct Side, Site, Position Yes Yes Yes -Correct Procedure Yes Yes Yes -Procedure Performed Yes Yes Yes -Type of Procedure Debridement Debridement Debridement -Clinical Debridement Subcutaneous Subcutaneous Subcutaneous -Tissue Removed Subcutaneous Subcutaneous Subcutaneous -Post Debridement (cm) - Length 4 4.8 4 -Post Debridement (cm) - Width 1 1.5 1 -Post Debridement (cm) - Depth 0.1 0.2 0.1 -Total Square (Post) (cm) 4 7.20 4 -Area of Debridement (cm) - Length 4 4.8 4 -Area of Debridement (cm) - Width 1 1.5 1 -Total Square (Area) (cm) 4 7.20 4 -Tunneling No No No -Undermining/Tunneling No No No -Circular Undermining No No No -Wound/Ulcer Outcome Not Healed Not Healed Not Healed -Ulcer Cleansing Rinsed/ Rinsed/ Rinsed/ Irrigated with Irrigated with Irrigated with Saline Saline Saline -Foul Odor after Cleansing No No No -Bioengineered Tissue No No No -Bleeding Controlled with Pressure Pressure Pressure -Treatment Response Procedure Procedure Procedure Tolerated Well Tolerated Well Tolerated Well -Debridement - Subq, 1st 20sq cm Yes Yes Yes Pain Scale: 0-10 Numeric Is Patient Pain Free? Yes Yes Yes - Nurse 3 - General Ulcer D/C NN Start: 12/16/24 11:06 Freq: Status: Active Protocol: Activity Type Activity Date Activity User E-sign Co-sign Detail Recorded Client Recorded Date Recorded By Document 12/16/24 11:19 RB [id number] 12/16/24 11:21 RB Edit Result 12/16/24 11:19 RB (1) [id number] 12/16/24 11:25 RB Document 12/23/24 11:28 BMF [id number] 12/23/24 11:29 BMF Document 12/30/24 11:30 BMF [id number] 12/30/24 11:31 BMF (1) #1 abdomen - Fibracol Plus 4x4 1 => 2 12/16/24 12/23/24 12/30/24 11:19 11:28 11:30 Wound Care Center Nurse 3 #1 abdomen -Ulcer Cleansing Rinsed/ Rinsed/ Rinsed/ Irrigated with Irrigated with Irrigated with Saline Saline Saline -Foul Odor after Cleansing No No -Primary Dressing Applied Fibracol Plus Promogran, Promogran, 4x4 Silicone Border Silicone Border Foam 6x6 Foam 4x4 -Other Dressing abd -Primary Dressing Covered/Secured with Secured with Tape -Fibracol Plus 4x4 2 -Promogran 2 2 -Silicone Border Foam 4x4 1 -Silicone Border Foam 6x6 1 Treatment Response Procedure Procedure Procedure Tolerated Well Tolerated Well Tolerated Well Pain Scale: 0-10 Numeric Is Patient Pain Free? Yes Yes Yes - Visit Discharge Discharge Condition Stable Stable Stable Ambulatory Status Ambulatory Ambulatory Ambulatory Transportation Private Auto Private Auto Private Auto Medication Reconcilliation completed & No provided to patient/care provider Clinical Summary of Care Provided Yes Assessment/Plan Assessment/Plan (1) Surgical wound present: CODE(S): T14.8XXA - Other injury of unspecified body region, initial encounter (2) Acute pain due to trauma: CODE(S): G89.11 - Acute pain due to trauma (3) Obesity: CODE(S): E66.9 - Obesity, unspecified QUALIFIERS: Obesity type: due to excess calories Obesity classification: unspecified obesity classification Serious obesity comorbidity presence: with serious comorbidity Qualified Code(s): E66.09 - Other obesity due to excess calories (4) Nonhealing surgical wound: CODE(S): T81.89XA - Other complications of procedures, not elsewhere classified, initial encounter QUALIFIERS: Encounter type: initial encounter Qualified Code(s): T81.89XA - Other complications of procedures, not elsewhere classified, initial encounter PLAN: Discontinue wound VAC patient has sent back the wound VAC now Patient is to continue taking her metronidazole 3 times Apply Promogran to wound base moistened and cover with her absorbent dressing once a day Follow-up in 1 week
[2025-01-06 11:20] VITALS: BP 145/97; PULSE 75; RESP 18; TEMP 35.8
--- NOTE | 2025-01-06 12:39 | PCM.WC.PN ---
History of Present Illness Date of Service: 01/06/25 Chief Complaint: Non healing surgical wound History of Wound: Ms. Mendoza is a 28 year old who presents due to non healing abdominal wound. S/p Hernia surgery about 3 months ago and since then, there has been non closure. She was advised to follow-up at [facility] By her primary surgeon at [place] as she developed a postop abscess. Per patient, she states that this was drained and she was treated for a Pseudomonas infection. Has been on 4 courses of ciprofloxacin. Has been packing the area. She reports pain. No known history of diabetes mellitus. History of tobacco abuse. No chills, fever or feeling of unwell reported at this time. Patient had another surgery in [place] and they removed all mesh in her abdomen and now she has an open wound that has to be closed. Had a wound VAC of their own on it but it never worked properly and was removed by her primary care doctor. She states cultures were done and that it was a clean wound. Does have a distinct odor. Progress of Wound: Cultures were positive for many cocci, patient has now finished her metronidazole . We have discontinued the wound VAC and she has to send it back. We have been doing wet-to-dry Fibracol with Dakin's with a dressing over top. But now I think she could move onto Promogran and a bordered dressing over top to finish it off and the finally get new skin on top. She is filled in nicely she is pretty flat now on her belly. No odor noted she is doing well looks very clean the wound. The wound today is utterly beautiful it is flatter smaller looks great . We will continue using the Promogran and follow her up in 2 week Subjective Subjective Patient is very pleased with outcomes and is excited that is coming to an end Objective Data Objective Data No sign of infection healing well no smell flat filling in the scar so much smaller than what it was patient is extremely pleased with outcomes we will let her go 2 weeks she should be healed Vital Signs: Vital Signs Temp Pulse Resp BP 96.5 F L 75 18 145/97 H 01/06/25 11:20 01/06/25 11:20 01/06/25 11:20 01/06/25 11:20 Physical Exam Const oriented x3 General Appearance: cooperative Exam Limitations: no limitations HEENT normocephalic Eyes General Eye: normal appearance of both eyes Neck full ROM General: normal visual inspection Resp normal respiratory effort Effort and Inspection: able to speak in complete sentences Auscultation: clear to auscultation bilaterally Cardio regular rate and regular rhythm Palpation: normal PMI Rate: regular rate Rhythm: regular rhythm GI Palpation: soft and no hepatosplenomegaly Extremity normal to inspection Skin Skin Narrative: Open wound to abdomen postoperative after removing mesh left open to heal out positive depth down to organs can see her stomach. Neuro oriented x3 Psych Appearance: grossly normal Speech: normal speech Thought Content: normal thought content Judgement: judgement good Debridement Note Debridement Note Wound debrided: Abdominal dehisced wound Type of Debridement: Excisional debridement Anesthesia Used: 5% Lidocaine Gel Depth: to muscle Percentage of wound debrided: 100 Instrument Used: 5mm curette Tissue Removed: Fibrin Severity: Fat Layer Exposed Amount of bleeding with debridement: Moderate Bleeding Controlled with: Compression and gauze Patient tolerated procedure: Patient tolerated procedure well Post-Debridement Measurements and Additional Note: Post-Debridement Measurements/Treatment - Nurse 1 - General Ulcer Assessment Start: 12/16/24 11:06 Freq: Status: Active Protocol: ELADIO.ALLENT Activity Type Activity Date Activity User E-sign Co-sign Detail Recorded Client Recorded Date Recorded By Document 12/16/24 11:06 RB [id number] 12/16/24 11:07 RB Document 12/23/24 10:48 DL [id number] 12/23/24 10:53 DL Document 12/30/24 11:10 DL [id number] 12/30/24 11:17 DL Document 01/06/25 11:20 RB [id number] 01/06/25 11:22 RB 12/16/24 12/23/24 12/30/24 11:06 10:48 11:10 - Today's Visit Information Type of service Follow-up Visit Follow-up Visit Follow-up Visit (Physician/SIDE SAWYER (Physician/SIDE SAWYER (Physician/SIDE SAWYER ) ) ) Arrival Mode Ambulatory Ambulatory Ambulatory Transfer Assistance None None None Patient Identification Verified (Name & Yes Yes Yes ) Patient Requires Transmission-Based No No No Precautions Vital Signs Temperature (97.8 F-99.1 F) 96.8 F L 98.1 F 97.2 F L Temperature Source Temporal Temporal Temporal Pulse Rate (60-100) 111 H 70 77 Pulse Location Monitor Monitor Monitor Respiratory Rate (12-18) 18 16 16 Respiratory rate source Observation Observation Blood Pressure (90/60-120/80) 152/97 H 124/91 H 136/91 H Blood Pressure Mean (mm Hg) 115 102 106 Source Monitor Monitor Monitor Position Semi-Fowlers Blood Pressure Location Left Arm History Since Last Visit- (Skip if this is Patient's initial visit) Have you changed medications since your No No No last visit? Any new allergies or adverse reactions No No No Had a fall/change in ADL's that may No No No increase risk of falls Signs or symptoms of abuse and/or No No No neglect since last visit Have you been in the hospital since your No No No last visit? Has dressing in place as prescribed Yes Yes Yes Has compression in place as prescribed N/A N/A N/A Has offloadiing in place as prescribed N/A Yes N/A Experienced any changes in pain level or No No No management Left Footwear Right Footwear Pain Scale: 0-10 Numeric Is Patient Pain Free? Yes Yes Yes 01/06/25 11:20 WC - Today's Visit Information Type of service Follow-up Visit (Physician/SIDE SAWYER ) Arrival Mode Ambulatory Transfer Assistance None Patient Identification Verified (Name & Yes ) Patient Requires Transmission-Based No Precautions Vital Signs Temperature (97.8 F-99.1 F) 96.5 F L Temperature Source Temporal Pulse Rate (60-100) 75 Pulse Location Monitor Respiratory Rate (12-18) 18 Respiratory rate source Observation Blood Pressure (90/60-120/80) 145/97 H Blood Pressure Mean (mm Hg) 113 Source Monitor Position Semi-Fowlers Blood Pressure Location Left Arm History Since Last Visit- (Skip if this is Patient's initial visit) Have you changed medications since your No last visit? Any new allergies or adverse reactions No Had a fall/change in ADL's that may No increase risk of falls Signs or symptoms of abuse and/or No neglect since last visit Have you been in the hospital since your No last visit? Has dressing in place as prescribed Yes Has compression in place as prescribed N/A Has offloadiing in place as prescribed N/A Experienced any changes in pain level or No management Left Footwear Regular Shoe Right Footwear Regular Shoe Pain Scale: 0-10 Numeric Is Patient Pain Free? Yes - Nurse 1 - General Ulcer Measurement Start: 12/16/24 11:06 Freq: Status: Active Protocol: Activity Type Activity Date Activity User E-sign Co-sign Detail Recorded Client Recorded Date Recorded By Document 12/16/24 11:06 RB [id number] 12/16/24 11:07 RB Document 12/23/24 10:48 DL [id number] 12/23/24 10:53 DL Document 12/30/24 11:10 DL [id number] 12/30/24 11:17 DL Document 01/06/25 11:20 RB [id number] 01/06/25 11:22 RB 12/16/24 12/23/24 12/30/24 11:06 10:48 11:10 Wound Center Nurse 1 #1 abdomen -Combined with other wound No -Current Size (cm) - Length 3.4 4.2 3.7 -Current Size (cm) - Width 1.5 1.3 0.7 -Current Size (cm) - Depth 0.8 0.1 0.1 -Total Square Cm 5.10 5.46 2.59 -Photo Taken Yes -Tunneling No -Undermining/Tunneling No -Circular Undermining No -Exudate Amt Large Medium Small -Exudate Type Serosanguineous Serosanguineous Serosanguineous -Wound Margin Distinct, Distinct, Distinct, Outline Outline Outline Attached Attached Attached -Granulation Amt Medium (34-66%) Small (1-33%) Large (67-100%) -Granulation Quality [place] -Slough/Fibrin Yes -Necrosis Amt Medium (34-66%) Large (67-100%) Small (1-33%) -Necrotic Tissue Type Adherent Slough Adherent Slough Adherent Slough -Structure Exposed N/A N/A N/A -Texture (Ana-wound Skin Appearance) Assessed, Scarring,Rash Scarring Excoriation, Scarring -Moisture (Ana-wound Skin Appearance) Assessed No Abnormality No Abnormality -Color (Ana-wound Skin Appearance) Assessed No Abnormality No Abnormality -Temperature (Ana-wound Skin No Abnormality No Abnormality No Abnormality Appearance) (Pt Warm) (Pt Warm) (Pt Warm) -Tenderness on Palpation (Ana-wound No No Skin Appearance) -Ulcer Cleansing Wound Cleanser Soap and Water Soap and Water -Foul Odor after Cleansing No No No -Anesthetic Used 5% Lidocaine 5% Lidocaine 5% Lidocaine Gel Gel Gel 01/06/25 11:20 Wound Center Nurse 1 #1 abdomen -Combined with other wound No -Current Size (cm) - Length 4.2 -Current Size (cm) - Width 0.5 -Current Size (cm) - Depth 0.1 -Total Square Cm 2.10 -Photo Taken Yes -Tunneling No -Undermining/Tunneling No -Circular Undermining No -Exudate Amt Large -Exudate Type Serosanguineous -Wound Margin Distinct, Outline Attached -Granulation Amt Medium (34-66%) -Granulation Quality [place] -Slough/Fibrin Yes -Necrosis Amt Medium (34-66%) -Necrotic Tissue Type Adherent Slough -Structure Exposed N/A -Texture (Ana-wound Skin Appearance) Assessed, Scarring -Moisture (Ana-wound Skin Appearance) Assessed -Color (Ana-wound Skin Appearance) Assessed -Temperature (Ana-wound Skin No Abnormality Appearance) (Pt Warm) -Tenderness on Palpation (Ana-wound No Skin Appearance) -Ulcer Cleansing Wound Cleanser -Foul Odor after Cleansing No -Anesthetic Used 5% Lidocaine Gel WC - Nurse 2 - General Ulcer CM Notes Start: 12/16/24 11:06 Freq: Status: Active Protocol: Activity Type Activity Date Activity User E-sign Co-sign Detail Recorded Client Recorded Date Recorded By Document 12/16/24 11:12 [facility] [id number] 12/16/24 11:15 [facility] Document 12/23/24 11:10 [facility] [id number] 12/23/24 11:14 BM Document 12/30/24 11:23 BM [id number] 12/30/24 11:25 BM Document 01/06/25 11:42 [id number] 01/06/25 11:43 DS 12/16/24 12/23/24 12/30/24 11:12 11:10 11:23 Wound Center Nurse 2 #1 abdomen -Time 11:12 11:10 11:23 -Correct Patient Yes Yes Yes -Correct Side, Site, Position Yes Yes Yes -Correct Procedure Yes Yes Yes -Procedure Performed Yes Yes Yes -Type of Procedure Debridement Debridement Debridement -Clinical Debridement Subcutaneous Subcutaneous Subcutaneous -Tissue Removed Subcutaneous Subcutaneous Subcutaneous -Post Debridement (cm) - Length 4 4.8 4 -Post Debridement (cm) - Width 1 1.5 1 -Post Debridement (cm) - Depth 0.1 0.2 0.1 -Total Square (Post) (cm) 4 7.20 4 -Area of Debridement (cm) - Length 4 4.8 4 -Area of Debridement (cm) - Width 1 1.5 1 -Total Square (Area) (cm) 4 7.20 4 -Tunneling No No No -Undermining/Tunneling No No No -Circular Undermining No No No -Wound/Ulcer Outcome Not Healed Not Healed Not Healed -Ulcer Cleansing Rinsed/ Rinsed/ Rinsed/ Irrigated with Irrigated with Irrigated with Saline Saline Saline -Foul Odor after Cleansing No No No -Bioengineered Tissue No No No -Bleeding Controlled with Pressure Pressure Pressure -Treatment Response Procedure Procedure Procedure Tolerated Well Tolerated Well Tolerated Well -Debridement - Subq, 1st 20sq cm Yes Yes Yes Pain Scale: 0-10 Numeric Is Patient Pain Free? Yes Yes Yes 01/06/25 11:42 Wound Center Nurse 2 #1 abdomen -Time 11:42 -Correct Patient Yes -Correct Side, Site, Position Yes -Correct Procedure Yes -Procedure Performed Yes -Type of Procedure Debridement -Clinical Debridement Subcutaneous -Tissue Removed Subcutaneous -Post Debridement (cm) - Length 3.5 -Post Debridement (cm) - Width 0.5 -Post Debridement (cm) - Depth 0.1 -Total Square (Post) (cm) 1.75 -Area of Debridement (cm) - Length 3.5 -Area of Debridement (cm) - Width 0.5 -Total Square (Area) (cm) 1.75 -Tunneling No -Undermining/Tunneling No -Circular Undermining No -Wound/Ulcer Outcome Not Healed -Ulcer Cleansing Rinsed/ Irrigated with Saline -Foul Odor after Cleansing No -Bioengineered Tissue No -Bleeding Controlled with -Treatment Response -Debridement - Subq, 1st 20sq cm Yes Pain Scale: 0-10 Numeric Is Patient Pain Free? Yes WC - Nurse 3 - General Ulcer D/C NN Start: 12/16/24 11:06 Freq: Status: Active Protocol: Activity Type Activity Date Activity User E-sign Co-sign Detail Recorded Client Recorded Date Recorded By Document 12/16/24 11:19 RB [id number] 12/16/24 11:21 RB Edit Result 12/16/24 11:19 RB (1) [id number] 12/16/24 11:25 RB Document 12/23/24 11:28 [facility] [id number] 12/23/24 11:29 BM Document 12/30/24 11:30 [facility] [id number] 12/30/24 11:31 [facility] Document 01/06/25 11:51 RB [id number] 01/06/25 11:52 RB (1) #1 abdomen - Fibracol Plus 4x4 1 => 2 12/16/24 12/23/24 12/30/24 11:19 11:28 11:30 Wound Care Center Nurse 3 #1 abdomen -Ulcer Cleansing Rinsed/ Rinsed/ Rinsed/ Irrigated with Irrigated with Irrigated with Saline Saline Saline -Foul Odor after Cleansing No No -Primary Dressing Applied Fibracol Plus Promogran, Promogran, 4x4 Silicone Border Silicone Border Foam 6x6 Foam 4x4 -Other Dressing abd -Primary Dressing Covered/Secured with Secured with Tape -Fibracol Plus 4x4 2 -Promogran 2 2 -Silicone Border Foam 4x4 1 -Silicone Border Foam 6x6 1 Treatment Response Procedure Procedure Procedure Tolerated Well Tolerated Well Tolerated Well Pain Scale: 0-10 Numeric Is Patient Pain Free? Yes Yes Yes WC - Visit Discharge Discharge Condition Stable Stable Stable Ambulatory Status Ambulatory Ambulatory Ambulatory Transportation Private Auto Private Auto Private Auto Medication Reconcilliation completed & No provided to patient/care provider Clinical Summary of Care Provided Yes 01/06/25 11:51 Wound Care Center Nurse 3 #1 abdomen -Ulcer Cleansing Rinsed/ Irrigated with Saline -Foul Odor after Cleansing -Primary Dressing Applied Promogran, Silicone Border Foam 4x4 -Other Dressing -Primary Dressing Covered/Secured with -Fibracol Plus 4x4 -Promogran 1 -Silicone Border Foam 4x4 1 -Silicone Border Foam 6x6 Treatment Response Procedure Tolerated Well Pain Scale: 0-10 Numeric Is Patient Pain Free? Yes WC - Visit Discharge Discharge Condition Stable Ambulatory Status Ambulatory Transportation Private Auto Medication Reconcilliation completed & No provided to patient/care provider Clinical Summary of Care Provided Yes Assessment/Plan Assessment/Plan (1) Surgical wound present: CODE(S): T14.8XXA - Other injury of unspecified body region, initial encounter (2) Acute pain due to trauma: CODE(S): G89.11 - Acute pain due to trauma (3) Obesity: CODE(S): E66.9 - Obesity, unspecified QUALIFIERS: Obesity type: due to excess calories Obesity classification: unspecified obesity classification Serious obesity comorbidity presence: with serious comorbidity Qualified Code(s): E66.09 - Other obesity due to excess calories (4) Nonhealing surgical wound: CODE(S): T81.89XA - Other complications of procedures, not elsewhere classified, initial encounter QUALIFIERS: Encounter type: initial encounter Qualified Code(s): T81.89XA - Other complications of procedures, not elsewhere classified, initial encounter PLAN: Discontinue wound VAC patient has sent back the wound VAC now Apply Promogran to wound base moistened and cover with her absorbent dressing once a day Follow-up in 2 week
--- NOTE | 2025-01-07 14:56 | WC ---
PHOTO-ABD 01/06/25
== END 2025-01-12 23:59 | disposition home or self-care (01) ==
LOC: WC 11:00
PROVIDERS: PCP Nurse Practitioner Family; Visit Provider Nurse Practitioner
DX: T81.89XA Other complications of procedures, not elsewhere classified, initial encounter (principal); Z87.891 Personal history of nicotine dependence; T81.49XA Infection following a procedure, other surgical site, initial encounter; Y83.8 Other surgical procedures as the cause of abnormal reaction of the patient, or of later complication, without mention of misadventure at the time of the procedure; G89.11 Acute pain due to trauma; E66.09 Other obesity due to excess calories
CPT/HCPCS: 11042

== ENCOUNTER 2025-02-10 09:45 | Outpatient (RCR) | payer MEDICAID, SELFPAY ==
[2025-01-27 10:04] VITALS: BP 136/69; PULSE 71; RESP 18; TEMP 36.1
--- NOTE | 2025-01-27 11:24 | PCM.WC.PN ---
History of Present Illness Date of Service: 01/27/25 Chief Complaint: Non healing surgical wound History of Wound: Ms. Mendoza is a 28 year old who presents due to non healing abdominal wound. S/p Hernia surgery about 3 months ago and since then, there has been non closure. She was advised to follow-up at [facility] By her primary surgeon at [place] as she developed a postop abscess. Per patient, she states that this was drained and she was treated for a Pseudomonas infection. Has been on 4 courses of ciprofloxacin. Has been packing the area. She reports pain. No known history of diabetes mellitus. History of tobacco abuse. No chills, fever or feeling of unwell reported at this time. Patient had another surgery in [place] and they removed all mesh in her abdomen and now she has an open wound that has to be closed. Had a wound VAC of their own on it but it never worked properly and was removed by her primary care doctor. She states cultures were done and that it was a clean wound. Does have a distinct odor. Progress of Wound: 01/06 was Char's last visit. Thought she would be healed but she still has a slight opening with some depth right around the umbilicus again. She states her dog jumps up on her and I think she might not hurt I am going to order a culture on her this time just to make sure she is not growing anything that is inhibiting the finishing her up. Subjective Subjective Patient is agreeable to plan she is happy we will get a culture to see if there is anything growing that is not meant letting it close up. Objective Data Objective Data No sign of infection bleeds easily beefy red just slight slit there that just will not close. Vital Signs: Vital Signs Temp Pulse Resp BP 97 F L 71 18 136/69 H 01/27/25 10:04 01/27/25 10:04 01/27/25 10:04 01/27/25 10:04 Lab / Micro Data Attestation: I reviewed the patient's lab results. Lab results narrative: No recent labs since 2023 Physical Exam Const oriented x3 General Appearance: cooperative Exam Limitations: no limitations HEENT normocephalic Eyes General Eye: normal appearance of both eyes Neck full ROM General: normal visual inspection Resp normal respiratory effort Effort and Inspection: able to speak in complete sentences Auscultation: clear to auscultation bilaterally Cardio regular rate and regular rhythm Palpation: normal PMI Rate: regular rate Rhythm: regular rhythm GI Palpation: soft and no hepatosplenomegaly Extremity normal to inspection Skin Skin Narrative: Open wound to abdomen postoperative after removing mesh left open to heal out positive depth down to organs can see her stomach. Neuro oriented x3 Psych Appearance: grossly normal Speech: normal speech Thought Content: normal thought content Judgement: judgement good Debridement Note Debridement Note Wound debrided: Abdominal dehisced wound Type of Debridement: Excisional debridement Anesthesia Used: 5% Lidocaine Gel Depth: to muscle Percentage of wound debrided: 100 Instrument Used: 3mm curette Tissue Removed: Fibrin Severity: Fat Layer Exposed Amount of bleeding with debridement: Moderate Bleeding Controlled with: Compression and gauze Patient tolerated procedure: Patient tolerated procedure well Post-Debridement Measurements and Additional Note: Post-Debridement Measurements/Treatment - Nurse 1 - General Ulcer Assessment Start: 01/27/25 10:04 Freq: Status: Active Protocol: RALPH Activity Type Activity Date Activity User E-sign Co-sign Detail Recorded Client Recorded Date Recorded By Document 01/27/25 10:04 [id number] 01/27/25 10:05 01/27/25 10:04 - Today's Visit Information Type of service Follow-up Visit (Physician/AUTOMOTIVE COLLISION REPAIR INSTRUCTOR ) Arrival Mode Ambulatory Transfer Assistance None Patient Identification Verified (Name & Yes ) Patient Requires Transmission-Based No Precautions Vital Signs Temperature (97.8 F-99.1 F) 97 F L Temperature Source Temporal Pulse Rate (60-100) 71 Pulse Location Monitor Respiratory Rate (12-18) 18 Respiratory rate source Observation Blood Pressure (90/60-120/80) 136/69 H Blood Pressure Mean (mm Hg) 91 Source Monitor Position Semi-Fowlers Blood Pressure Location Left Arm History Since Last Visit- (Skip if this is Patient's initial visit) Have you changed medications since your No last visit? Any new allergies or adverse reactions No Had a fall/change in ADL's that may No increase risk of falls Signs or symptoms of abuse and/or No neglect since last visit Have you been in the hospital since your No last visit? Has dressing in place as prescribed Yes Has compression in place as prescribed N/A Has offloadiing in place as prescribed N/A Experienced any changes in pain level or No management Left Footwear Regular Shoe Right Footwear Regular Shoe Pain Scale: 0-10 Numeric Is Patient Pain Free? Yes WC - Nurse 1 - General Ulcer Measurement Start: 01/27/25 10:04 Freq: Status: Active Protocol: Activity Type Activity Date Activity User E-sign Co-sign Detail Recorded Client Recorded Date Recorded By Document 01/27/25 10:04 RB [id number] 01/27/25 10:05 RB 01/27/25 10:04 Wound Center Nurse 1 #1 abdomen -Combined with other wound No -Current Size (cm) - Length 4 -Current Size (cm) - Width 0.5 -Current Size (cm) - Depth 0.2 -Total Square Cm 2.0 -Photo Taken Yes -Tunneling No -Undermining/Tunneling No -Circular Undermining No -Exudate Amt Medium -Exudate Type Serosanguineous -Wound Margin Distinct, Outline Attached -Granulation Amt Medium (34-66%) -Granulation Quality [place] -Slough/Fibrin Yes -Necrosis Amt Medium (34-66%) -Necrotic Tissue Type Adherent Slough -Structure Exposed N/A -Texture (Ana-wound Skin Appearance) Assessed -Moisture (Ana-wound Skin Appearance) Assessed -Color (Ana-wound Skin Appearance) Assessed -Temperature (Ana-wound Skin No Abnormality Appearance) (Pt Warm) -Tenderness on Palpation (Ana-wound No Skin Appearance) -Ulcer Cleansing Wound Cleanser -Foul Odor after Cleansing No -Anesthetic Used 5% Lidocaine Gel WC - Nurse 2 - General Ulcer CM Notes Start: 01/27/25 10:04 Freq: Status: Active Protocol: Activity Type Activity Date Activity User E-sign Co-sign Detail Recorded Client Recorded Date Recorded By Document 01/27/25 10:12 DS [id number] 01/27/25 10:13 DS 01/27/25 10:12 Wound Center Nurse 2 -Time 10:12 -Correct Patient Yes -Correct Side, Site, Position Yes -Correct Procedure Yes -Procedure Performed Yes -Type of Procedure Debridement -Clinical Debridement Subcutaneous -Tissue Removed Subcutaneous -Post Debridement (cm) - Length 2.3 -Post Debridement (cm) - Width 0.5 -Post Debridement (cm) - Depth 0.3 -Total Square (Post) (cm) 1.15 -Area of Debridement (cm) - Length 2.3 -Area of Debridement (cm) - Width 0.5 -Total Square (Area) (cm) 1.15 -Tunneling No -Undermining/Tunneling No -Circular Undermining No -Wound/Ulcer Outcome Not Healed -Ulcer Cleansing Rinsed/ Irrigated with Saline -Foul Odor after Cleansing No -Bioengineered Tissue No -Bleeding Controlled with Pressure -Treatment Response Procedure Tolerated Well -Offloading No -Debridement - Subq, 1st 20sq cm Yes Pain Scale: 0-10 Numeric Is Patient Pain Free? Yes WC - Nurse 3 - General Ulcer D/C NN Start: 01/27/25 10:04 Freq: Status: Active Protocol: Activity Type Activity Date Activity User E-sign Co-sign Detail Recorded Client Recorded Date Recorded By Document 01/27/25 10:21 CP [id number] 01/27/25 10:22 CP 01/27/25 10:21 Wound Care Center Nurse 3 #1 abdomen -Ulcer Cleansing Rinsed/ Irrigated with Saline -Primary Dressing Applied Promogran, Silicone Border Foam 4x4 -Promogran 1 -Silicone Border Foam 4x4 1 Pain Scale: 0-10 Numeric Is Patient Pain Free? Yes WC - Visit Discharge Discharge Condition Stable Ambulatory Status Ambulatory Transportation Private Auto Clinical Summary of Care Provided Yes Assessment/Plan Assessment/Plan (1) Surgical wound present: CODE(S): T14.8XXA - Other injury of unspecified body region, initial encounter (2) Acute pain due to trauma: CODE(S): G89.11 - Acute pain due to trauma (3) Obesity: CODE(S): E66.9 - Obesity, unspecified QUALIFIERS: Obesity type: due to excess calories Obesity classification: unspecified obesity classification Serious obesity comorbidity presence: with serious comorbidity Qualified Code(s): E66.09 - Other obesity due to excess calories (4) Nonhealing surgical wound: CODE(S): T81.89XA - Other complications of procedures, not elsewhere classified, initial encounter QUALIFIERS: Encounter type: initial encounter Qualified Code(s): T81.89XA - Other complications of procedures, not elsewhere classified, initial encounter PLAN: Apply Promogran to wound base moistened and cover with her absorbent dressing once a day Follow-up in 2 week
--- NOTE | 2025-01-28 10:12 | WC ---
PHOTO-ABD 01/27/25
--- NOTE | 2025-02-02 09:10 | WC ---
received WC result from Daisy. Called pt to inform her of positive WC result and will call Doxycyline 100mg to [facility]. pt understands this. Called pharmacy after talking with patient
[2025-02-10 10:17] VITALS: BP 128/79; PULSE 82; RESP 18; TEMP 36.4
--- NOTE | 2025-02-10 12:35 | PN.PCM_ITS ---
History of Present Illness Date of Service: 02/10/25 Chief Complaint: Non healing surgical wound History of Wound: Ms. Mendoza is a 28 year old who presents due to non healing abdominal wound. S/p Hernia surgery about 3 months ago and since then, there has been non closure. She was advised to follow-up at [facility] By her primary surgeon at [place] as she developed a postop abscess. Per patient, she states that this was drained and she was treated for a Pseudomonas infection. Has been on 4 courses of ciprofloxacin. Has been packing the area. She reports pain. No known history of diabetes mellitus. History of tobacco abuse. No chills, fever or feeling of unwell reported at this time. Patient had another surgery in [place] and they removed all mesh in her abdomen and now she has an open wound that has to be closed. Had a wound VAC of their own on it but it never worked properly and was removed by her primary care doctor. She states cultures were done and that it was a clean wound. Does have a distinct odor. Progress of Wound: Cultures came back rare staph that I do not usually treat but since she is not closing very fast I am going to go ahead and start her on the doxycycline which she has already started and she is half the size that it was 2 weeks ago so we will let her go another 2 weeks and she should be healed I think she does need a little push with some antibiotics and she needs to keep the area really clean Enrique. Subjective Subjective She was happy with the measurements being smaller and still open though and we will follow her up in 2 weeks Objective Data Objective Data No sign of infection the skin looks good it is all supple and looks flesh colored other than the split in the skin on her around her [place] at all you would know that she has a wound. Will continue using the Promogran and she can put a dry dressing on top every day. Vital Signs: Vital Signs Temp Pulse Resp BP O2 Del Method 97.5 F L 82 18 128/79 H Room Air 02/10/25 10:17 02/10/25 10:17 02/10/25 10:17 02/10/25 10:17 02/10/25 10:17 Oxygen Delivery Method Room Air Lab / Micro Data Micro: Microbiology 01/27/25 10:14 Wound - Abdominal Gram Stain - Final 01/27/25 10:14 Wound - Abdominal Wound Culture - Final Meth. resistant Staph. aureus 01/27/25 10:14 Wound - Abdominal Anaerobic Culture - Final No anaerobic bacteria isolated. Physical Exam Const oriented x3 General Appearance: cooperative Exam Limitations: no limitations HEENT normocephalic Eyes General Eye: normal appearance of both eyes Neck full ROM General: normal visual inspection Resp normal respiratory effort Effort and Inspection: able to speak in complete sentences Auscultation: clear to auscultation bilaterally Cardio regular rate and regular rhythm Palpation: normal PMI Rate: regular rate Rhythm: regular rhythm GI Palpation: soft and no hepatosplenomegaly Extremity normal to inspection Skin Skin Narrative: Open wound to abdomen postoperative after removing mesh left open to heal out positive depth down to organs can see her stomach. Neuro oriented x3 Psych Appearance: grossly normal Speech: normal speech Thought Content: normal thought content Judgement: judgement good Debridement Note Debridement Note Wound debrided: Abdominal dehisced wound Type of Debridement: Excisional debridement Anesthesia Used: 5% Lidocaine Gel Depth: to muscle Percentage of wound debrided: 100 Instrument Used: 3mm curette Tissue Removed: Fibrin Severity: Fat Layer Exposed Amount of bleeding with debridement: Moderate Bleeding Controlled with: Compression and gauze Patient tolerated procedure: Patient tolerated procedure well Post-Debridement Measurements and Additional Note: Post-Debridement Measurements/Treatment - Nurse 1 - General Ulcer Assessment Start: 01/27/25 10:04 Freq: Status: Active Protocol: [email or web address].[email or web address] Activity Type Activity Date Activity User E-sign Co-sign Detail Recorded Client Recorded Date Recorded By Document 01/27/25 10:04 [id number] 01/27/25 10:05 RB Document 02/10/25 10:17 [id number] 02/10/25 10:19 RB 01/27/25 02/10/25 10:04 10:17 - Today's Visit Information Type of service Follow-up Visit Follow-up Visit (Physician/ELECTRONIC INTELLIGENCE OFFICER (Physician/ELECTRONIC INTELLIGENCE OFFICER ) ) Arrival Mode Ambulatory Ambulatory Transfer Assistance None None Patient Identification Verified (Name & Yes Yes ) Patient Requires Transmission-Based No No Precautions Vital Signs Temperature (97.8 F-99.1 F) 97 F L 97.5 F L Temperature Source Temporal Temporal Pulse Rate (60-100) 71 82 Pulse Location Monitor Monitor Respiratory Rate (12-18) 18 18 Respiratory rate source Observation Observation Oxygen Delivery Method Room Air Blood Pressure (90/60-120/80) 136/69 H 128/79 H Blood Pressure Mean (mm Hg) 91 95 Source Monitor Monitor Position Semi-Fowlers Semi-Fowlers Blood Pressure Location Left Arm Left Arm History Since Last Visit- (Skip if this is Patient's initial visit) Have you changed medications since your No No last visit? Any new allergies or adverse reactions No No Had a fall/change in ADL's that may No No increase risk of falls Signs or symptoms of abuse and/or No No neglect since last visit Have you been in the hospital since your No No last visit? Has dressing in place as prescribed Yes Yes Has compression in place as prescribed N/A N/A Has offloadiing in place as prescribed N/A N/A Experienced any changes in pain level or No No management Left Footwear Regular Shoe Regular Shoe Right Footwear Regular Shoe Regular Shoe Pain Scale: 0-10 Numeric Is Patient Pain Free? Yes No abd -Description Aching -Intensity 4 -Duration (hours) Acute -Pain Behavior Guarding -Pain Aggravating Factors Exercise/ Activity -Alleviating Factors/Interventions Medication -Effectiveness of Alleviating Factor/ Moderately Intervention effective WC - Nurse 1 - General Ulcer Measurement Start: 01/27/25 10:04 Freq: Status: Active Protocol: Activity Type Activity Date Activity User E-sign Co-sign Detail Recorded Client Recorded Date Recorded By Document 01/27/25 10:04 RB [id number] 01/27/25 10:05 RB Document 02/10/25 10:17 RB [id number] 02/10/25 10:19 RB 01/27/25 02/10/25 10:04 10:17 Wound Center Nurse 1 #1 abdomen -Combined with other wound No No -Current Size (cm) - Length 4 3 -Current Size (cm) - Width 0.5 0.5 -Current Size (cm) - Depth 0.2 0.4 -Total Square Cm 2.0 1.5 -Photo Taken Yes Yes -Tunneling No No -Undermining/Tunneling No No -Circular Undermining No No -Exudate Amt Medium Medium -Exudate Type Serosanguineous Serosanguineous -Wound Margin Distinct, Thickened & Outline Rolled Under Attached -Granulation Amt Medium (34-66%) Medium (34-66%) -Granulation Quality [place] -Slough/Fibrin Yes Yes -Necrosis Amt Medium (34-66%) Medium (34-66%) -Necrotic Tissue Type Adherent Slough Adherent Slough -Structure Exposed N/A N/A -Texture (Ana-wound Skin Appearance) Assessed Scarring -Moisture (Ana-wound Skin Appearance) Assessed Assessed -Color (Ana-wound Skin Appearance) Assessed Assessed -Temperature (Ana-wound Skin No Abnormality No Abnormality Appearance) (Pt Warm) (Pt Warm) -Tenderness on Palpation (Ana-wound No No Skin Appearance) -Ulcer Cleansing Wound Cleanser Wound Cleanser -Foul Odor after Cleansing No No -Anesthetic Used 5% Lidocaine 5% Lidocaine Gel Gel WC - Nurse 2 - General Ulcer CM Notes Start: 01/27/25 10:04 Freq: Status: Active Protocol: Activity Type Activity Date Activity User E-sign Co-sign Detail Recorded Client Recorded Date Recorded By Document 01/27/25 10:12 DS [id number] 01/27/25 10:13 DS Document 02/10/25 10:41 DS [id number] 02/10/25 10:43 DS 01/27/25 02/10/25 10:12 10:41 Wound Center Nurse 2 #1 abdomen -Time 10:12 10:41 -Correct Patient Yes Yes -Correct Side, Site, Position Yes Yes -Correct Procedure Yes Yes -Procedure Performed Yes Yes -Type of Procedure Debridement Debridement -Clinical Debridement Subcutaneous Subcutaneous -Tissue Removed Subcutaneous Subcutaneous -Post Debridement (cm) - Length 2.3 1.5 -Post Debridement (cm) - Width 0.5 0.4 -Post Debridement (cm) - Depth 0.3 0.2 -Total Square (Post) (cm) 1.15 0.60 -Area of Debridement (cm) - Length 2.3 1.5 -Area of Debridement (cm) - Width 0.5 0.4 -Total Square (Area) (cm) 1.15 0.60 -Tunneling No No -Undermining/Tunneling No No -Circular Undermining No No -Wound/Ulcer Outcome Not Healed Not Healed -Ulcer Cleansing Rinsed/ Rinsed/ Irrigated with Irrigated with Saline Saline -Foul Odor after Cleansing No No -Bioengineered Tissue No No -Bleeding Controlled with Pressure Pressure -Treatment Response Procedure Procedure Tolerated Well Tolerated Well -Offloading No -Debridement - Subq, 1st 20sq cm Yes Yes Pain Scale: 0-10 Numeric Is Patient Pain Free? Yes Yes WC - Nurse 3 - General Ulcer D/C NN Start: 01/27/25 10:04 Freq: Status: Active Protocol: Activity Type Activity Date Activity User E-sign Co-sign Detail Recorded Client Recorded Date Recorded By Document 01/27/25 10:21 CP [id number] 01/27/25 10:22 CP Document 02/10/25 11:14 CP [id number] 02/10/25 11:15 CP 01/27/25 02/10/25 10:21 11:14 Wound Care Center Nurse 3 #1 abdomen -Ulcer Cleansing Rinsed/ Rinsed/ Irrigated with Irrigated with Saline Saline -Primary Dressing Applied Promogran, Promogran Silicone Border Staci Matter, Foam 4x4 Silicone Border Foam 4x4 -Promogran 1 -Promogran Staci Matter 1 -Silicone Border Foam 4x4 1 1 Pain Scale: 0-10 Numeric Is Patient Pain Free? Yes Yes WC - Visit Discharge Discharge Condition Stable Stable Ambulatory Status Ambulatory Ambulatory Transportation Private Auto Private Auto Medication Reconcilliation completed & No provided to patient/care provider Clinical Summary of Care Provided Yes Yes Assessment/Plan Assessment/Plan (1) Surgical wound present: CODE(S): T14.8XXA - Other injury of unspecified body region, initial encounter (2) Acute pain due to trauma: CODE(S): G89.11 - Acute pain due to trauma (3) Obesity: CODE(S): E66.9 - Obesity, unspecified QUALIFIERS: Obesity type: due to excess calories Obesity classification: unspecified obesity classification Serious obesity comorbidity presence: with serious comorbidity Qualified Code(s): E66.09 - Other obesity due to excess calories (4) Nonhealing surgical wound: CODE(S): T81.89XA - Other complications of procedures, not elsewhere classified, initial encounter QUALIFIERS: Encounter type: initial encounter Qualified Code(s): T81.89XA - Other complications of procedures, not elsewhere classified, initial encounter PLAN: Apply Promogran to wound base moistened and cover with her absorbent dressing once a day Follow-up in 2 week
--- NOTE | 2025-02-11 11:51 | WC ---
PHOTO-ABD 02/10/25
== END 2025-02-12 23:59 | disposition home or self-care (01) ==
LOC: WC 09:45
PROVIDERS: PCP Nurse Practitioner Family; Visit Provider Nurse Practitioner
DX: T81.89XA Other complications of procedures, not elsewhere classified, initial encounter (principal); Z87.891 Personal history of nicotine dependence; G89.11 Acute pain due to trauma; E66.09 Other obesity due to excess calories
CPT/HCPCS: 11042; 87070; 87075; 87077; 87186; 87205

== ENCOUNTER 2025-03-03 09:39 | Outpatient (RCR) | payer MEDICAID, SELFPAY ==
[2025-03-03 09:46] VITALS: BP 166/94; PULSE 92; RESP 16; TEMP 36.6
--- NOTE | 2025-03-03 10:02 | PN.PCM_ITS ---
History of Present Illness Date of Service: 03/03/25 Chief Complaint: Non healing surgical wound History of Wound: Ms. Mendoza is a 28 year old who presents due to non healing abdominal wound. S/p Hernia surgery about 3 months ago and since then, there has been non closure. She was advised to follow-up at [facility] By her primary surgeon at [place] as she developed a postop abscess. Per patient, she states that this was drained and she was treated for a Pseudomonas infection. Has been on 4 courses of ciprofloxacin. Has been packing the area. She reports pain. No known history of diabetes mellitus. History of tobacco abuse. No chills, fever or feeling of unwell reported at this time. Patient had another surgery in [place] and they removed all mesh in her abdomen and now she has an open wound that has to be closed. Had a wound VAC of their own on it but it never worked properly and was removed by her primary care doctor. She states cultures were done and that it was a clean wound. Does have a distinct odor. Progress of Wound: She is down to a very superficial area on her around her umbilicus. She has not been to the wound center for over a month. I cultured her the last time and she was positive for MRSA again so we went ahead and put her on doxycycline she appears to be doing well but she just has a small sliver of an area that is superficial that still open so we will follow her up in a month I told her since she does not has problems getting here. And if she heals before that she is to come in earlier. Subjective Subjective Patient is agreeable to plan Objective Data Objective Data No sign of infection superficial opening on around her umbilicus still open no. Will continue using the Promogran it seems to be working for and keeping her clean with the Hibiclens Vital Signs: Vital Signs Temp Pulse Resp BP O2 Del Method 97.8 F 92 16 166/94 H Room Air 03/03/25 09:46 03/03/25 09:46 03/03/25 09:46 03/03/25 09:46 03/03/25 09:46 Oxygen Delivery Method Room Air Lab / Micro Data Attestation: I reviewed the patient's lab results. Physical Exam Const oriented x3 General Appearance: cooperative Exam Limitations: no limitations HEENT normocephalic Eyes General Eye: normal appearance of both eyes Neck full ROM General: normal visual inspection Resp normal respiratory effort Effort and Inspection: able to speak in complete sentences Auscultation: clear to auscultation bilaterally Cardio regular rate and regular rhythm Palpation: normal PMI Rate: regular rate Rhythm: regular rhythm GI Palpation: soft and no hepatosplenomegaly Extremity normal to inspection Skin Skin Narrative: Open wound to abdomen postoperative after removing mesh left open to heal out positive depth down to organs can see her stomach. Neuro oriented x3 Psych Appearance: grossly normal Speech: normal speech Thought Content: normal thought content Judgement: judgement good Debridement Note Debridement Note Wound debrided: Abdominal dehisced wound Type of Debridement: Excisional debridement Anesthesia Used: 5% Lidocaine Gel Depth: to muscle Percentage of wound debrided: 100 Instrument Used: 3mm curette Tissue Removed: Fibrin Severity: Fat Layer Exposed Amount of bleeding with debridement: Moderate Bleeding Controlled with: Compression and gauze Patient tolerated procedure: Patient tolerated procedure well Post-Debridement Measurements and Additional Note: Post-Debridement Measurements/Treatment - Nurse 1 - General Ulcer Assessment Start: 03/03/25 09:45 Freq: Status: Active Protocol: RALPH Activity Type Activity Date Activity User E-sign Co-sign Detail Recorded Client Recorded Date Recorded By Document 03/03/25 09:46 DS [id number] 03/03/25 09:51 DS 03/03/25 09:46 - Today's Visit Information Type of service Follow-up Visit (Physician/NURSERY SCHOOL TEACHER ) Arrival Mode Ambulatory Patient Identification Verified (Name & Yes ) Patient Requires Transmission-Based No Precautions Safety Precautions Fall Prevention Vital Signs Temperature (97.8 F-99.1 F) 97.8 F Temperature Source Temporal Pulse Rate (60-100) 92 Pulse Location Monitor Respiratory Rate (12-18) 16 Respiratory rate source Observation Oxygen Delivery Method Room Air Blood Pressure (90/60-120/80) 166/94 H Blood Pressure Mean (mm Hg) 118 Source Monitor Position Semi-Fowlers Blood Pressure Location Right Arm History Since Last Visit- (Skip if this is Patient's initial visit) Have you changed medications since your No last visit? Any new allergies or adverse reactions No Had a fall/change in ADL's that may No increase risk of falls Signs or symptoms of abuse and/or No neglect since last visit Have you been in the hospital since your No last visit? Has dressing in place as prescribed Yes Has compression in place as prescribed N/A Has offloadiing in place as prescribed N/A Experienced any changes in pain level or No management Left Footwear Regular Shoe Right Footwear Regular Shoe Pain Scale: 0-10 Numeric Is Patient Pain Free? Yes - Nurse 1 - General Ulcer Measurement Start: 03/03/25 09:45 Freq: Status: Active Protocol: Activity Type Activity Date Activity User E-sign Co-sign Detail Recorded Client Recorded Date Recorded By Document 03/03/25 09:46 DS [id number] 03/03/25 09:51 DS 03/03/25 09:46 Wound Center Nurse 1 #1 abdomen -Current Size (cm) - Length 1.9 -Current Size (cm) - Width 0.4 -Current Size (cm) - Depth 0.3 -Total Square Cm 0.76 -Date of Last Picture (Recall this 03/03/25 field) -Photo Taken Yes -Tunneling No -Undermining/Tunneling No -Circular Undermining No -Exudate Amt Small -Exudate Type Serosanguineous -Wound Margin Distinct, Outline Attached -Granulation Amt Medium (34-66%) -Granulation Quality [place] -Necrosis Amt Medium (34-66%) -Necrotic Tissue Type Adherent Slough -Texture (Ana-wound Skin Appearance) Assessed, Scarring -Moisture (Ana-wound Skin Appearance) Assessed -Color (Ana-wound Skin Appearance) Assessed -Temperature (Ana-wound Skin No Abnormality Appearance) (Pt Warm) -Tenderness on Palpation (Ana-wound No Skin Appearance) -Ulcer Cleansing Soap and Water -Foul Odor after Cleansing No -Anesthetic Used 4% Lidocaine Solution - Nurse 2 - General Ulcer CM Notes Start: 03/03/25 09:45 Freq: Status: Active Protocol: Activity Type Activity Date Activity User E-sign Co-sign Detail Recorded Client Recorded Date Recorded By Document 03/03/25 09:57 [id number] 03/03/25 10:01 03/03/25 09:57 Wound Center Nurse 2 -Time 09:59 -Correct Patient Yes -Correct Side, Site, Position Yes -Correct Procedure Yes -Procedure Performed Yes -Type of Procedure Debridement -Clinical Debridement Subcutaneous -Tissue Removed Subcutaneous -Post Debridement (cm) - Length 1 -Post Debridement (cm) - Width 0.3 -Post Debridement (cm) - Depth 0.1 -Total Square (Post) (cm) 0.3 -Area of Debridement (cm) - Length 1 -Area of Debridement (cm) - Width 0.3 -Total Square (Area) (cm) 0.3 -Tunneling No -Undermining/Tunneling No -Circular Undermining No -Wound/Ulcer Outcome Not Healed -Ulcer Cleansing Rinsed/ Irrigated with Saline -Foul Odor after Cleansing No -Bioengineered Tissue No -Bleeding Controlled with Pressure -Treatment Response Procedure Tolerated Well -Offloading No -Debridement - Subq, 1st 20sq cm Yes Pain Scale: 0-10 Numeric Is Patient Pain Free? Yes Assessment/Plan Assessment/Plan (1) Surgical wound present: CODE(S): T14.8XXA - Other injury of unspecified body region, initial enc ounter (2) Acute pain due to trauma: CODE(S): G89.11 - Acute pain due to trauma (3) Obesity: CODE(S): E66.9 - Obesity, unspecified QUALIFIERS: Obesity type: due to excess calories Obesity classification: unspecified obesity classification Serious obesity comorbidity presence: with serious comorbidity Qualified Code(s): E66.09 - Other obesity due to excess calories (4) Nonhealing surgical wound: CODE(S): T81.89XA - Other complications of procedures, not elsewhere classified, initial encounter QUALIFIERS: Encounter type: initial encounter Qualified Code(s): T81.89XA - Other complications of procedures, not elsewhere classified, initial encounter PLAN: Apply Promogran to wound base moistened and cover with her absorbent dressing once a day Follow-up in 4 week
--- NOTE | 2025-03-03 14:42 | WC ---
call placed to pt. informed that her last order of supplies was on 02/10/25 for a 30day supply. asked if pt still has dressings. states has a box left. informed her that I can not reorder dressing until 03/13/25. pt understands.
--- NOTE | 2025-03-04 08:56 | WC ---
PHOTO-ABD 03/03/25
== END 2025-03-14 23:59 | disposition home or self-care (01) ==
LOC: WC 09:39
PROVIDERS: PCP Nurse Practitioner Family; Visit Provider Nurse Practitioner
DX: T81.89XA Other complications of procedures, not elsewhere classified, initial encounter (principal); Z87.891 Personal history of nicotine dependence; E66.09 Other obesity due to excess calories; G89.11 Acute pain due to trauma; Y83.8 Other surgical procedures as the cause of abnormal reaction of the patient, or of later complication, without mention of misadventure at the time of the procedure; T81.49XA Infection following a procedure, other surgical site, initial encounter
CPT/HCPCS: 11042